=== PATIENT | male | born 1960 | race Caucasian/White ===

== ENCOUNTER 2021-06-26 06:56 | Emergency (ER) | payer OTHER, MEDICARE, MEDICAID, SELFPAY ==
--- NOTE | ~2021-06-26 | XR_ITS ---
EXAMINATION: XR ELBOW, LEFT CLINICAL INFORMATION: Left elbow pain. COMPARISON: None TECHNIQUE: AP, lateral, and oblique views of the left elbow. FINDINGS: The elbow joint space is maintained normal. There is a large olecranon osteophyte with moderate posterior olecranon soft tissue swelling likely bursitis. There is mild posterior elbow and proximal forearm soft tissue swelling. There is a small to moderate size lateral epicondyle enthesophyte. No abnormal joint effusion seen. There is no acute fracture or dislocation. XR/XR elbow LT min 3V IMPRESSION: Large posterior olecranon process enthesophyte with posterior soft tissue swelling suggestive of olecranon bursitis. Small to moderate size lateral epicondylar enthesophyte. No acute fracture or joint effusion seen.
[2021-06-26 07:10] VITALS: BP 172/85; PULSE 70; RESP 19; TEMP 36.8; O2SAT 97; BMI 31.7
[2021-06-26 09:14] LABS: MANUAL DIFF FLAG NO
[2021-06-26 09:15] LABS: Basophils Absolute Auto 0.1 X10*3/uL (0.0-0.2); Eosinophils Absolute Auto 0.1 X10*3/uL (0.0-0.4); Eosinophils Percent Auto 2.2 % (0-4); Hematocrit 48.5 % (42.0-52.0); Imm Gran Abs Auto 0.02 X10*3/uL (0.00-0.03); Imm Gran Pct Auto 0.3 % (0.0-0.4); Lymphocytes Absolute Auto 1.5 X10*3/uL (1.2-4.9); Lymphocytes Percent Auto 24.8 % (20-40); Mean Corpuscular HGB Conc 30.9 g/dl (31.0-36.0); Mean Corpuscular Hemoglobin 23.6 pg (27.0-33.0); Mean Corpuscular Volume 76.3 fL (80.0-98.0); Monocytes Absolute Auto 0.7 X10*3/uL (0.1-1.2); Monocytes Percent Auto 12.3 % (2-11); Neutrophils Absolute Auto 3.6 x10*3/uL (2.0-8.3); Neutrophils Percent Auto 59.4 % (45-73); Platelet Count 146 X10*3/uL (160-400); Red Blood Count 6.36 X10*6/uL (4.60-5.80); Red Cell Distribution Width 16.4 % (11.0-16.0)
--- NOTE | 2021-06-26 09:15 | ED.SKABFB ---
HPI - Skin/Abscess/Foreign Bdy General Chief complaint: Skin/Abscess/Foreign Body Stated complaint: l arm infection Time Seen by Provider: 06/26/21 08:06 Source: patient Mode of arrival: ambulatory History of Present Illness HPI narrative: 60-year-old male with no significant past medical history presenting to the ED complaining of left elbow pain, swelling, erythema and warmth x4 days. Reports decreased ROM secondary to pain. Denies known injury/trauma or fall. Denies fever, chills, numbness/tingling, CP Related Data Previous Rx's Medication Instructions Recorded cephalexin 500 mg capsule 500 mg PO QID 7 Days #28 cap 06/26/21 ketorolac 10 mg tablet 10 mg PO TID PRN 5 Days #15 tab 06/26/21 Allergies Allergy/AdvReac Type Severity Reaction Status Date / Time No Known Allergies Allergy Unverified 04/15/20 14:42 Review of Systems Review of Systems: Constitutional: No Fever, No Chills, No Malaise ENT/Mouth: No Nasal Congestion, No sore throat, No Rhinorrhea Eyes: No Eye Pain, No Swelling Cardiovascular: No Chest Pain, No SOB Respiratory: No Cough, No Dyspnea Gastrointestinal: No Nausea, No Vomiting, No Diarrhea, No Abdominal pain Genitourinary: No Dysuria, No Urinary Frequency, No Hematuria Musculoskeletal: + joint pain, No Myalgias, + Joint Swelling Skin: No Skin Lesions, No rash Neuro: No Weakness, No Numbness, No Paresthesias Yes all other systems are reviewed and are negative Neurologic: Denies Sensory deficit (Neuro) [facility] Past Medical History Attestation statement: The following information was validated with the patient. Social History Social History Alcohol intake: never Patient Tobacco Use Status: Never used Tobacco Use of substances other than those prescribed or required for medical reasons: No Advance Directives: No Advance Directives Information Provided: No Physical Exam Vital Signs: Vital Signs: Last Vital Signs Temp 98.2 F 06/26/21 07:10 Pulse 70 06/26/21 07:10 Resp 19 06/26/21 07:10 BP 172/85 H 06/26/21 07:10 Pulse Ox 97 06/26/21 07:10 Body Mass Index 31.7 Const: General: cooperative, healthy appearing and no acute distress Orientation/consciousness: patient oriented x3 Limitations: no limitations HENMT: Head: Yes normal to inspection Ears: hearing grossly normal bilaterally General nose exam: Normal external nose present Face and sinus: Yes normal facial exam Eyes: General: appearance normal, both eyes and all related structures EOM: EOMs intact bilaterally Neck: Neck: Yes normal visual inspection and Yes no meningeal signs Resp: Effort & Inspection: normal respiratory effort and no respiratory distress Cardio: Rate: regular rate Heart sounds: S1 normal heart sound present and S2 normal heart sound present Peripheral pulses: radial pulses present GI: Inspection: Yes normal to inspection Palpation (GI): Soft to palpation, nontender, no guarding and not rigid : General: Yes no CVA tenderness Back/Spine/Pelvis: Back: no CVA tenderness Skin: Rashes: no rashes Wounds: no wounds Neuro: General: patient oriented x3 and no meningeal signs Gait exam (Neuro): Normal gait present Sensory Exam: No Sensory deficit (Neuro) Extrem: Other: Left elbow with swelling, erythema and warmth. Tender to palpation. Decreased ROM secondary to pain. Neurovascularly intact distally. No fluctuance/induration or streaking Course Course Course Narrative: -1019--no leukocytosis. ESR WNL. Lactic negative. CRP mildly elevated > lower concern for septic joint/arthritis XR elbow LT min 3V IMPRESSION: Large posterior olecranon process enthesophyte with posterior soft tissue swelling suggestive of olecranon bursitis. ? Small to moderate size lateral epicondylar enthesophyte. ? No acute fracture or joint effusion seen. >> plan to DC patient home on p.o. Keflex with strict return precautions and orthopedic follow-up MDM - Skin/Abscess/Foreign Bdy MDM Narrative Medical decision making narrative: 60-year-old male with no significant past medical history presenting to the ED complaining of left elbow pain, swelling, erythema and warmth x4 days. On exam vital signs stable, afebrile, NAD. Nontoxic, physical exam as above. Concern for cellulitis vs infected bursitis vs septic joint/arthritis vs gout vs ?[place] Plan: Labs, UA, lactic/blood cultures, IV antibiotics, x-ray, re-evaluate Medical Records Attestation: I reviewed the patient's medical records. Lab Data Attestation: I reviewed the patient's lab results. Result diagrams: 06/26/21 09:04 06/26/21 09:04 Labs: Lab Results 06/26/21 06/26/21 06/26/21 Range/Units 09:04 09:04 09:04 WBC 6.0 (4.8-10.8) X10*3/uL RBC 6.36 H (4.60-5.80) X10*6/uL Hgb 15.0 (14.0-18.0) g/dl Hct 48.5 (42.0-52.0) % MCV 76.3 L (80.0-98.0) fL MCH 23.6 L (27.0-33.0) pg MCHC 30.9 L (31.0-36.0) g/dl RDW 16.4 H (11.0-16.0) % Plt Count 146 L (160-400) X10*3/uL MPV 10.0 (9.4-12.4) fL Immature Gran % (Auto) 0.3 (0.0-0.4) % Neut % (Auto) 59.4 (45-73) % Lymph % (Auto) 24.8 (20-40) % [place] % (Auto) 12.3 H (2-11) % Eos % (Auto) 2.2 (0-4) % Baso % (Auto) 1.0 (0-2) % Lymph # (Auto) 1.5 (1.2-4.9) X10*3/uL [place] # (Auto) 0.7 (0.1-1.2) X10*3/uL Eos # (Auto) 0.1 (0.0-0.4) X10*3/uL Baso # (Auto) 0.1 (0.0-0.2) X10*3/uL Abs Immat Gran (auto) 0.02 (0.00-0.03) X10*3/uL Absolute Neuts (auto) 3.6 (2.0-8.3) x10*3/uL Absolute Nucleated RBC 0.000 (0.0-0.012) X10*3/uL Nucleated RBC % (auto) 0.0 (0.0-0.2) /100WBC ESR 3 (0-15) MM/HR Sodium 137 (135-145) mmol/L Potassium 4.3 (3.3-5.1) mmol/L Chloride 105 (96-108) mmol/L Carbon Dioxide 22 (22-29) mmol/L Anion Gap 14 (12-20) BUN 13 (9-16) mg/dL Creatinine 1.00 (0.5-1.4) mg/dL Estim Creat Clear Calc 88.2 Estimated GFR > 60 Random Glucose 87 (60-115) mg/dL Lactic Acid (0.5-2.0) mmol/L Calcium 9.1 (8.4-10.2) mg/dL Total Bilirubin 0.9 (0.0-1.0) mg/dL Direct Bilirubin 0.3 (0.0-0.5) mg/dL AST 29 (5-37) U/L ALT 42 H (0-40) U/L Alkaline Phosphatase 79 (39-117) U/L C-Reactive Protein 2.53 H (< or = 0.50) mg/dL Total Protein 7.2 (6.5-8.0) g/dL Albumin 4.1 (3.5-5.0) g/dL 06/26/21 Range/Units 09:04 WBC (4.8-10.8) X10*3/uL RBC (4.60-5.80) X10*6/uL Hgb (14.0-18.0) g/dl Hct (42.0-52.0) % MCV (80.0-98.0) fL MCH (27.0-33.0) pg MCHC (31.0-36.0) g/dl RDW (11.0-16.0) % Plt Count (160-400) X10*3/uL MPV (9.4-12.4) fL Immature Gran % (Auto) (0.0-0.4) % Neut % (Auto) (45-73) % Lymph % (Auto) (20-40) % [place] % (Auto) (2-11) % Eos % (Auto) (0-4) % Baso % (Auto) (0-2) % Lymph # (Auto) (1.2-4.9) X10*3/uL [place] # (Auto) (0.1-1.2) X10*3/uL Eos # (Auto) (0.0-0.4) X10*3/uL Baso # (Auto) (0.0-0.2) X10*3/uL Abs Immat Gran (auto) (0.00-0.03) X10*3/uL Absolute Neuts (auto) (2.0-8.3) x10*3/uL Absolute Nucleated RBC (0.0-0.012) X10*3/uL Nucleated RBC % (auto) (0.0-0.2) /100WBC ESR (0-15) MM/HR Sodium (135-145) mmol/L Potassium (3.3-5.1) mmol/L Chloride (96-108) mmol/L Carbon Dioxide (22-29) mmol/L Anion Gap (12-20) BUN (9-16) mg/dL Creatinine (0.5-1.4) mg/dL Estim Creat Clear Calc Estimated GFR Random Glucose (60-115) mg/dL Lactic Acid 1.5 (0.5-2.0) mmol/L Calcium (8.4-10.2) mg/dL Total Bilirubin (0.0-1.0) mg/dL Direct Bilirubin (0.0-0.5) mg/dL AST (5-37) U/L ALT (0-40) U/L Alkaline Phosphatase (39-117) U/L C-Reactive Protein (< or = 0.50) mg/dL Total Protein (6.5-8.0) g/dL Albumin (3.5-5.0) g/dL Discharge Plan Discharge Clinical Impression: Bursitis due to bacterial infection Patient Disposition: Home, Self-Care Instructions: Cellulitis (ED) Additional Instructions: It appears you have infected bursitis, Keflex as an antibiotic please take as prescribed Apply cool compresses to area at Take Tylenol and Toradol for pain/swelling Toradol is a anti-inflammatory/pain medication, take with food Please follow-up with her primary care doctor and Orthopedics If symptoms persist/worsen, swelling/pain increases/worsens were unable to move her elbow or developed fever return to the ED immediately Prescriptions: New ketorolac 10 mg tablet 10 mg PO TID PRN (Reason: pain) 5 Days Qty: 15 RF: 0 cephalexin 500 mg capsule 500 mg PO QID 7 Days Qty: 28 RF: 0 Referrals: Flori Cruz MD [Primary Care Provider] - 2 days Nisa Robledo PA-C [Physician Roving Sizer] - 2 days
[2021-06-26] MEDS: Ketorolac Tromethamine 15 MG/ML VIAL IVPUSH (09:27)
[2021-06-26 09:29] LABS: Lactic Acid 1.5 mmol/L (0.5-2.0)
--- NOTE | 2021-06-26 09:30 | PC.NURSE ---
pt requiring many sticks by multiple staff for iv access and blood work. unable to get enough blood for lyme igg, lab aware. will medicate pt and attempt for further blood work brian.
[2021-06-26 09:37] LABS: Alanine Aminotransferase 42 U/L (0-40); Albumin Level 4.1 g/dL (3.5-5.0); Alkaline Phosphatase 79 U/L (39-117); Anion Gap 14 (12-20); Aspartate Amino Transferase 29 U/L (5-37); Bilirubin Direct 0.3 mg/dL (0.0-0.5); Bilirubin Total 0.9 mg/dL (0.0-1.0); Blood Urea Nitrogen 13 mg/dL (9-16); C Reactive Protein 2.53 mg/dL (< or = 0.50); Calcium 9.1 mg/dL (8.4-10.2); Carbon Dioxide 22 mmol/L (22-29); Chloride 105 mmol/L (96-108); Creatinine Clr Calc Pharmacy 88.2; Estimated Glomerular Filt Rate > 60; Glucose Random 87 mg/dL (60-115); Potassium 4.3 mmol/L (3.3-5.1); Sodium 137 mmol/L (135-145); Total Protein 7.2 g/dL (6.5-8.0)
[2021-06-26] MEDS: cefTRIAXone sodium 1 GM in 0.9 % Sodium Chloride 50 ML IV (09:42)
[2021-06-26 10:06] LABS: Erythrocyte Sedimentation Rate 3 MM/HR (0-15)
== END 2021-06-26 10:44 | disposition home or self-care (01) ==
PROVIDERS: Physician Assistant; Emergency Provider Emergency Medicine; PCP Internal Medicine
DX: M71.122 Other infective bursitis, left elbow (principal); B96.89 Other specified bacterial agents as the cause of diseases classified elsewhere; M25.522 Pain in left elbow; M25.422 Effusion, left elbow
CPT/HCPCS: 36415; 73080; 80048; 80076; 83605; 85025; 85652; 86140; 87040; 96365; 96375; 99284; J0696; J1885

== ENCOUNTER 2021-06-28 07:14 | Emergency (ER) | payer OTHER, MEDICARE, MEDICAID, SELFPAY ==
--- NOTE | ~2021-06-28 | CT_ITS ---
EXAMINATION: CT LEFT ELBOW. CLINICAL INFORMATION: Pain is, swelling and warmth extending from elbow to forearm. COMPARISON: Left elbow exam 06/18/2021. TECHNIQUE: 3 mm thin axial and reformatted 1 mm thin sagittal coronal images of left elbow were obtained without contrast. DLP 149 FINDINGS: There is normal distal humeral, radio-ulnar alignment. No bony erosive changes or loose body seen. There is no abnormal joint effusion seen. There is a small olecranon head enthesophyte. Also small enthesophytes are seen along the lateral distal humeral epicondyle. The radial head is intact. No acute fracture or dislocation seen.. There is moderate superficial soft tissue swelling extending from posterior distal humerus, elbow joint to the proximal and mid forearm likely cellulitis. No radiopaque foreign body or abscess seen in this region. CT/CT elbow LT w con IMPRESSION: Likely moderate cellulitis involving the posterior elbow joint without any radiopaque foreign body or abscess. There is diffuse soft tissue swelling, most localized posterior to the olecranon head and enthesophyte. No soft tissue swelling seen along the anterior elbow. No acute fracture or dislocation. No abnormal joint effusion or loose bodies seen.
[2021-06-28 08:18] VITALS: BP 138/78; PULSE 60; RESP 16; TEMP 36.9; O2SAT 99; BMI 31.7
--- NOTE | 2021-06-28 08:37 | ED.EXTPRO ---
HPI - Extremity Problem General Chief complaint: Extremity Problem Stated complaint: ?inf lt arm Time Seen by Provider: 06/28/21 08:25 Source: patient and family Mode of arrival: ambulatory Limitations: no limitations History of Present Illness HPI Narrative: 60-year-old male with no medical problems presents to the ER for return visit with ongoing left elbow pain. He was seen here on June 26 diagnosed with infectious bursitis and discharged on Keflex and Toradol. He states since discharge he has been compliant with his medications but is having worsening pain that is now extending down into his forearm. He states he feels like his forearm is swollen and it hurts to move his hand and fingers. He is unable to fully extend his arm due to pain he can not slightly bend the elbow but it hurts. He feels ?sick? but has had no fevers at home he reports some chills and just generally feeling unwell. His elbow continues to be warm and very tender to the touch. He did not sleep at all last night because of the pain. At 23:00 he woke up with worsening pain and was unable to go back to bed. MD Complaint: joint swelling and joint paint Onset (ago): day(s) Pain Consistency: constant Location: left and elbow Severity scale (1-10): 8 Quality: aching and constant Radiation: distal Relieving factors: rest Exacerbating factors: range of motion and palpation Associated symptoms: myalgias and arthralgias Related Data Previous Rx's Medication Instructions Recorded cephalexin 500 mg capsule 500 mg PO QID 7 Days #28 cap 06/26/21 ketorolac 10 mg tablet 10 mg PO TID PRN 5 Days #15 tab 06/26/21 doxycycline hyclate 100 mg tablet 100 mg PO BID #14 tab 06/28/21 oxycodone 5 mg tablet 5 mg PO Q4-6H PRN #10 tab 06/28/21 Allergies Allergy/AdvReac Type Severity Reaction Status Date / Time No Known Allergies Allergy Unverified 04/15/20 14:42 Review of Systems Review of Systems: Constitutional: No Fever, No Chills ENT/Mouth: No sore throat, No Rhinorrhea, No Swallowing Difficulty Cardiovascular: No Chest Pain, No SOB, No Orthopnea, No Edema Respiratory: No Cough, No Sputum, No Wheezing, No dyspnea Gastrointestinal: No Nausea, No Vomiting, No Diarrhea, No abdominal Pain Genitourinary: No Dysuria, No Urinary Frequency, No Hematuria Musculoskeletal: + joint pain, + Myalgias Skin: No Skin Lesions, No rash Neuro: + Weakness, No Numbness, No Dizziness, + Headache Psych: + Anxiety/Panic, No Depression Heme/Lymph: No Bruising, No Lymphadenopathy Endocrine: No Polyuria, No Polydipsia PMFSH Social History Social History Alcohol intake: never Patient Tobacco Use Status: Never used Tobacco Advance Directives: No Physical Exam Vital Signs: Vital Signs: Last Vital Signs Temp 98.5 F 06/28/21 10:57 Pulse 62 06/28/21 10:57 Resp 16 06/28/21 10:57 BP 168/83 H 06/28/21 10:57 Pulse Ox 98 06/28/21 10:57 Body Mass Index 31.7 Appearance: Alert. Oriented X3. No acute distress. Eyes: Pupils equal, round and reactive to light. ENT: Pharynx normal. Neck: Normal inspection. Neck supple. CVS: Normal heart rate and rhythm. Pulses normal. Respiratory: No respiratory distress. Breath sounds normal. Abdomen: Soft and nontender. +BS x4 Skin: Skin warm and dry. Normal skin color. Normal skin turgor. No rashes. Extremities: Left elbow with moderate swelling and warmth. Minimal erythema to the elbow joint itself. There is tenderness and some swelling extending to the volar surface of the forearm without any erythema or warmth. He has a 2+ radial pulses and is neurovascularly intact distal. He is unable to extend the elbow due to pain he can partially flex it to maybe 90 degrees but nothing past that. Neuro: Oriented X 3. No motor deficit. No sensory deficit. Course Course Course Narrative: 60-year-old male with history of recently diagnosed infectious bursitis on the p.o. Keflex and Toradol for the last 2 days presents back to the ER with worsening elbow pain that is extending distally. No fevers but reports some subjective chills at home and feeling unwell. Will repeat septic workup and get CT scan for further evaluation of infection that may be into the muscle or joint. Will give dose of IV vancomycin and Rocephin for broad coverage. He may require admission to the hospital. Reevaluation(s) Reevaluation #1: New leukocytosis. ESR is normal. CRP is slightly elevated, up titrated slightly from the day before. Otherwise his lab workup is normal including a normal lactic acid. Blood cultures were sent. CT scan of the elbow is showing moderate cellulitis of the posterior elbow without abscess. There is diffuse soft tissue swelling. No drainable collection. This CT scan was reviewed by Nisa SORENSEN from Orthopedics. She is recommending Camacho wrap for compressio and adding doxycycline to regimen. Patient agreeable with plan and will f/u with Orthopedics this week. MDM - Extremity (Nontraumatic) Lab Data Result diagrams: 06/28/21 09:03 06/28/21 09:03 Labs: Lab Results 06/28/21 06/28/21 06/28/21 Range/Units 09:02 09:03 09:03 WBC 5.0 (4.8-10.8) X10*3/uL RBC 6.80 H (4.60-5.80) X10*6/uL Hgb 15.9 (14.0-18.0) g/dl Hct 51.3 (42.0-52.0) % MCV 75.4 L (80.0-98.0) fL MCH 23.4 L (27.0-33.0) pg MCHC 31.0 (31.0-36.0) g/dl RDW 15.9 (11.0-16.0) % Plt Count 185 D (160-400) X10*3/uL MPV 10.4 (9.4-12.4) fL Immature Gran % (Auto) 0.4 (0.0-0.4) % Neut % (Auto) 62.7 (45-73) % Lymph % (Auto) 22.9 (20-40) % [place] % (Auto) 10.0 (2-11) % Eos % (Auto) 2.8 (0-4) % Baso % (Auto) 1.2 (0-2) % Lymph # (Auto) 1.2 (1.2-4.9) X10*3/uL [place] # (Auto) 0.5 (0.1-1.2) X10*3/uL Eos # (Auto) 0.1 (0.0-0.4) X10*3/uL Baso # (Auto) 0.1 (0.0-0.2) X10*3/uL Abs Immat Gran (auto) 0.02 (0.00-0.03) X10*3/uL Absolute Neuts (auto) 3.2 (2.0-8.3) x10*3/uL Absolute Nucleated RBC 0.000 (0.0-0.012) X10*3/uL Nucleated RBC % (auto) 0.0 (0.0-0.2) /100WBC ESR 4 (0-15) MM/HR Sodium (135-145) mmol/L Potassium (3.3-5.1) mmol/L Chloride (96-108) mmol/L Carbon Dioxide (22-29) mmol/L Anion Gap (12-20) BUN (9-16) mg/dL Creatinine (0.5-1.4) mg/dL Estim Creat Clear Calc Estimated GFR Random Glucose (60-115) mg/dL Lactic Acid (0.5-2.0) mmol/L Calcium (8.4-10.2) mg/dL Magnesium (1.6-2.6) mg/dL Total Bilirubin (0.0-1.0) mg/dL Direct Bilirubin (0.0-0.5) mg/dL AST (5-37) U/L ALT (0-40) U/L Alkaline Phosphatase (39-117) U/L Total Creatine Kinase (38-174) U/L C-Reactive Protein (< or = 0.50) mg/dL Total Protein (6.5-8.0) g/dL Albumin (3.5-5.0) g/dL COVID-19 ([facility]) Negative (Negative) COVID-19 Clin Com See Note 06/28/21 06/28/21 Range/Units 09:03 09:03 WBC (4.8-10.8) X10*3/uL RBC (4.60-5.80) X10*6/uL Hgb (14.0-18.0) g/dl Hct (42.0-52.0) % MCV (80.0-98.0) fL MCH (27.0-33.0) pg MCHC (31.0-36.0) g/dl RDW (11.0-16.0) % Plt Count (160-400) X10*3/uL MPV (9.4-12.4) fL Immature Gran % (Auto) (0.0-0.4) % Neut % (Auto) (45-73) % Lymph % (Auto) (20-40) % [place] % (Auto) (2-11) % Eos % (Auto) (0-4) % Baso % (Auto) (0-2) % Lymph # (Auto) (1.2-4.9) X10*3/uL [place] # (Auto) (0.1-1.2) X10*3/uL Eos # (Auto) (0.0-0.4) X10*3/uL Baso # (Auto) (0.0-0.2) X10*3/uL Abs Immat Gran (auto) (0.00-0.03) X10*3/uL Absolute Neuts (auto) (2.0-8.3) x10*3/uL Absolute Nucleated RBC (0.0-0.012) X10*3/uL Nucleated RBC % (auto) (0.0-0.2) /100WBC ESR (0-15) MM/HR Sodium 136 (135-145) mmol/L Potassium 5.5 H D (3.3-5.1) mmol/L Chloride 103 (96-108) mmol/L Carbon Dioxide 23 (22-29) mmol/L Anion Gap 16 (12-20) BUN 17 H (9-16) mg/dL Creatinine 1.04 (0.5-1.4) mg/dL Estim Creat Clear Calc 84.8 Estimated GFR > 60 Random Glucose 94 (60-115) mg/dL Lactic Acid 1.0 (0.5-2.0) mmol/L Calcium 9.7 D (8.4-10.2) mg/dL Magnesium 2.4 (1.6-2.6) mg/dL Total Bilirubin 1.1 H (0.0-1.0) mg/dL Direct Bilirubin 0.3 (0.0-0.5) mg/dL AST 46 H D (5-37) U/L ALT 51 H (0-40) U/L Alkaline Phosphatase 87 (39-117) U/L Total Creatine Kinase 122 (38-174) U/L C-Reactive Protein 2.99 H (< or = 0.50) mg/dL Total Protein 8.2 H (6.5-8.0) g/dL Albumin 4.4 (3.5-5.0) g/dL COVID-19 ([facility]) (Negative) COVID-19 Clin Com Discharge Plan Discharge Clinical Impression: Bursitis due to bacterial infection, Cellulitis of left elbow Patient Disposition: Home, Self-Care Instructions: Cellulitis (ED), Elbow Bursitis (ED) Additional Instructions: Your lab workup today was reassuring. Your CT scan today showed cellulitis and soft tissue swelling without any abscess or drainable infection. Your given IV antibiotics in the emergency room today. We are starting a 2nd antibiotic, take 1st dose tomorrow. Continue your previously prescribed Keflex starting tomorrow morning. Take the prescribed oxycodone as needed for severe pain, your insurance required prior authorization for all pain medications so you may need to pay [id number] for this. Continue the Toradol as previously prescribed, take with food. Follow-up with the orthopedic clinic in 2 days. Call for an appointment. There where of your case. If you develop new or worsening symptoms call 911 or come back to the ER for further evaluation. Prescriptions: New doxycycline hyclate 100 mg tablet 100 mg PO BID Qty: 14 RF: 0 oxycodone 5 mg tablet 5 mg PO Q4-6H PRN (Reason: pain) Qty: 10 RF: 0 No Action ketorolac 10 mg tablet 10 mg PO TID PRN (Reason: pain) 5 Days Qty: 15 RF: 0 cephalexin 500 mg capsule 500 mg PO QID 7 Days Qty: 28 RF: 0 Referrals: Nisa Robledo PA-C [Physician Biological Lab Technician] - 2 days (infected elbow bursitis and cellulitis) Interventions: ED Discharge Assessment Last Done: 06/28/21 12:31 Discharge Date/Time: 06/28/21 12:33
[2021-06-28 09:09] LABS: MANUAL DIFF FLAG NO
[2021-06-28 09:13] LABS: Basophils Absolute Auto 0.1 X10*3/uL (0.0-0.2); Basophils Percent Auto 1.2 % (0-2); Eosinophils Absolute Auto 0.1 X10*3/uL (0.0-0.4); Eosinophils Percent Auto 2.8 % (0-4); Hematocrit 51.3 % (42.0-52.0); Hemoglobin 15.9 g/dl (14.0-18.0); Imm Gran Abs Auto 0.02 X10*3/uL (0.00-0.03); Imm Gran Pct Auto 0.4 % (0.0-0.4); Lymphocytes Absolute Auto 1.2 X10*3/uL (1.2-4.9); Lymphocytes Percent Auto 22.9 % (20-40); Mean Corpuscular Hemoglobin 23.4 pg (27.0-33.0); Mean Corpuscular Volume 75.4 fL (80.0-98.0); Mean Platelet Volume 10.4 fL (9.4-12.4); Monocytes Absolute Auto 0.5 X10*3/uL (0.1-1.2); Neutrophils Absolute Auto 3.2 x10*3/uL (2.0-8.3); Neutrophils Percent Auto 62.7 % (45-73); Platelet Count 185 X10*3/uL (160-400); Red Cell Distribution Width 15.9 % (11.0-16.0)
[2021-06-28 09:28] LABS: COVID-19 Test Negative (Negative); IDNOW Serial# 9DD0AD1C
[2021-06-28 09:34] LABS: Alanine Aminotransferase 51 U/L (0-40); Albumin Level 4.4 g/dL (3.5-5.0); Alkaline Phosphatase 87 U/L (39-117); Anion Gap 16 (12-20); Aspartate Amino Transferase 46 U/L (5-37); Bilirubin Direct 0.3 mg/dL (0.0-0.5); Bilirubin Total 1.1 mg/dL (0.0-1.0); Blood Urea Nitrogen 17 mg/dL (9-16); C Reactive Protein 2.99 mg/dL (< or = 0.50); Calcium 9.7 mg/dL (8.4-10.2); Carbon Dioxide 23 mmol/L (22-29); Chloride 103 mmol/L (96-108); Creatinine Clr Calc Pharmacy 84.8; Estimated Glomerular Filt Rate > 60; Glucose Random 94 mg/dL (60-115); Magnesium 2.4 mg/dL (1.6-2.6); Potassium 5.5 mmol/L (3.3-5.1); Sodium 136 mmol/L (135-145); Total Protein 8.2 g/dL (6.5-8.0)
[2021-06-28 10:02] LABS: Erythrocyte Sedimentation Rate 4 MM/HR (0-15)
[2021-06-28] MEDS: oxyCODONE HCl Immed Release 5 MG TABLET PO ×2 (10:07→11:26)
[2021-06-28] MEDS: cefTRIAXone sodium 1 GM in 0.9 % Sodium Chloride 50 ML IV (10:14)
[2021-06-28] MEDS: iohexoL 350 MG/ML 100 ML INFUS..BTL IV (10:21)
--- NOTE | 2021-06-28 10:37 | PHA.MEDREC ---
med rec complete, no issues Pharmacy Consult ? Medication Reconciliation Pharmacy has completed the medication reconciliation.
[2021-06-28] MEDS: vancomycin HCL 1,250 MG in 0.9 % Sodium Chloride 250 ML 166.67 MG IV (10:52)
[2021-06-28 10:57] VITALS: BP 168/83; PULSE 62; RESP 16; TEMP 36.9; O2SAT 98
[2021-06-28] MEDS: Ketorolac Tromethamine 15 MG/ML VIAL 30 MG IVPUSH (11:28)
== END 2021-06-28 12:33 | disposition home or self-care (01) ==
PROVIDERS: Physician Assistant; Emergency Provider Emergency Medicine; PCP Internal Medicine
DX: M71.122 Other infective bursitis, left elbow (principal); B96.89 Other specified bacterial agents as the cause of diseases classified elsewhere; L03.114 Cellulitis of left upper limb; Z20.822 Contact with and (suspected) exposure to COVID-19; M79.10 Myalgia, unspecified site
CPT/HCPCS: 36415; 73201; 80048; 80076; 82550; 83605; 83735; 85025; 85652; 86140; 87040; 87635; 96365; 96367; 96375; 99284; J0696; J1885; J3370; Q9967

== ENCOUNTER 2024-12-02 06:49 | Outpatient (REF) | payer OTHER, SELFPAY ==
--- OUTSIDE RECORDS SUMMARY | 2024-12-02 06:52 | XMS_ITS | Clinical Summary ---
Author Organization [facility] Address [address] [place] [address] Care Team Providers Care Adventure Guide Name Role Phone Flori Cruz MD Primary Care Provider [phone] Allergies No known active allergies Medications Medication Sig Dispensed Refills Start Date End Date Status meloxicam (MOBIC) 15 MG tablet Take 1 tablet (15 mg total) by mouth daily. 14 tablet 0 08/19/2021 Active amoxicillin (AMOXIL) 500 MG tablet Take 4 tabs 1 hour prior to dental appointment 20 tablet 3 09/01/2021 Active senna-docusate (PERICOLACE) 8.6-50 MG Take 1 tablet by mouth 2 (two) times a day. 50 tablet 0 09/27/2021 Active acetaminophen (TYLENOL EXTRA STRENGTH) 500 MG tablet Take 1 tablet (500 mg total) by mouth every 8 (eight) hours as needed for pain. 60 tablet 0 10/13/2021 Active pantoprazole (PROTONIX) 40 MG tablet TAKE 1 TABLET BY MOUTH EVERY DAY IN THE MORNING ON AN EMPTY STOMACH 30 tablet 1 11/15/2021 Active Active Problems Problem Noted Date Diagnosed Date Arthritis of knee, right 04/14/2021 Resolved Problems Problem Noted Date Diagnosed Date Resolved Date Acute lateral meniscus tear of right knee 10/26/2020 11/11/2020 Immunizations Name Administration Dates Next Due Covid-19 (J&J) 12/06/2020 Family History Medical History Relation Name Comments COPD Father Cancer Father bladder Heart disease Father Heart failure Father Hyperlipidemia Father Hypertension Father Peripheral vascular disease Father Peripheral vascular disease Mother peripheral STENTS Arthritis Sister 1 No Sig Med Hx Sister 2 Aleyda No Sig Med Hx Sister 3 Radha Relation Name Status Comments Father (Age 88) Mother Alive Sister 1 Alive Sister 2 Aleyda Alive Sister 3 Radha Alive Social History Tobacco Use Types Packs/Day Years Used Date Smoking Tobacco: Former Cigarettes 1 Q uit: 2004 Smokeless Tobacco: Never Alcohol Use Standard Drinks/Week Comments Yes 15 (1 standard drink = 0.6 oz pu re alcohol) 12-15/weekly Sex and Gender Information Value Date Recorded Sex Assigned at Male 07/27/2021 11:07 AM EST Gender Identity Male 07/27/2021 11:07 AM EST Sexual Orientation Not on file Job Start Date Occupation Industry Not on file Not on file Not on file Last Filed Vital Signs Vital Sign Reading Time Taken Comments Blood Pressure 137/77 08/19/2021 12:24 PM EST Pulse 64 08/19/2021 12:24 PM EST Temperature 37.3 ??C (99.2 ??F) 08/19/2021 12:[address] Respiratory Rate 18 08/19/2021 12:24 PM EST Oxygen Saturation 97% 08/19/2021 12:24 PM EST Inhaled Oxygen Concentration - - Weight 97.5 kg (215 lb) 08/18/2021 6:35 AM EST Height 175.3 cm (5' 9 ) 08/18/2021 6:35 AM EST Body Mass Index 31.75 08/18/2021 6:35 AM EST Plan of Treatment Health Maintenance Due Date Last Done Comments Hepatitis C Screening 1958 Depression Screening 1970 BMI Counseling 1976 Preventative Health Evaluation 1976 DTap / Tdap / Td (1 - Tdap) 1977 Colon Cancer Screening (Colonoscopy) 2003 Shingrix-Zoster Vaccine (1 of 2) 2008 Fall Risk Assessment 2023 Pneumococcal Vaccine (1 of 1 - PCV) 2023 COVID-19 Vaccine (2 - 2023-2 5 season) 2024 12/06/2020 Influenza Vaccine (#1) 2024 RSV Adult > 60+ Yrs or Pregn ant (1 - 1-dose 75+ series) 2033 Hepatitis B Vaccines Aged Out No long er eligible based on patient's age to complete this topic RSV Ped < 20 months Aged Out No longe r eligible based on patient's age to complete this topic Medical Devices Implanted Type Area General Contractor Device Identifier Shelf Expiration Date Model / Serial / Lot Cement Bone Surg Simplex Radiopq Stry-Howm 4265-2-969-114 092 - [id number] Implanted:Qty: 1 on 08/18/2021 by Mikal Campbell MD at [facility] Right: Knee [employer] [id number] 09/27/2023 6191-1-010 / / [id number] Cement Bone Surg Simplex Radiopq Stry-Howm [id number] 092 - [id number] Implanted:Qty: 1 on 08/18/2021 by Mikal Campbell MD at [facility] Right: Knee [employer] [id number] 05/29/2022 [id number] / / [id number] Peg Fix Femoral Distal Stry-Howm [id number]-[id number] 704 - [id number] Implanted:Qty: 1 on 08/18/2021 by Mikal Campbell MD at [facility] Right: Knee [employer] [id number] 11/17/2025 5575-X-000 / / [id number] Knee Pat Symmetric X3 29x8mm Stry-Howm 2768-M-[id number] 334 - [id number] Implanted:Qty: 1 on 08/18/2021 by Mikal Campbell MD at [facility] Right: Knee [employer] [id number] 07/15/2025 5550-G-298 / / [id number] Knee Tib Insrt Ps-X3 [id number] Stry-Howm 8875-M-[id number] 751 - [id number] Implanted:Qty: 1 on 08/18/2021 by Mikal Campbell MD at [facility] Right: Knee [employer] [id number] 02/20/2026 5532-G-513 / / [id number] Knee Baseplt Tib Cmnt Sz5 Stry-Howm 5675-I-[id number] 191 - [id number] Implanted:Qty: 1 on 08/18/2021 by Mikal Campbell MD at [facility] Right: Knee [employer] [id number] 04/26/2026 5520-B-500 / / [id number] Knee Fem Ps Trthln Sz [address] [id number]-U-[id number] 740 - [id number] Implanted:Qty: 1 on 08/18/2021 by Mikal Campbell MD at [facility] Right: Knee [employer] [id number] 02/25/2026 5515-F-402 / / [id number] Advance Directives For more information, please contact: [phone] Latest Code Status on File Code Status Date Activated Date Inactivated Comments Full Code 08/18/2021 9:40 AM 08/19/2021 9:30 PM This code status was ascertained in the following way: discussion with patient . Code Status History Code Status Date Activated Date Inactivated Comments Full Code 08/18/2021 5:13 AM 08/18/2021 9:39 AM This code status was ascertained in the following way: discussion with patient . Care Teams Adventure Guide Relationship Specialty Start Date End Date Flori Cruz MD [address] [place] [address] PCP - General Internal Medicine 10/13/20
[2024-12-02 10:33] LABS: MANUAL DIFF FLAG NO
[2024-12-02 10:48] LABS: Basophils Absolute Auto 0.1 X10*3/uL (0.0-0.2); Basophils Percent Auto 1.6 % (0-2); Eosinophils Absolute Auto 0.2 X10*3/uL (0.0-0.4); Eosinophils Percent Auto 3.3 % (0-4); Hematocrit 49.8 % (42.0-52.0); Hemoglobin 16.1 g/dl (14.0-18.0); Imm Gran Abs Auto 0.02 X10*3/uL (0.00-0.03); Imm Gran Pct Auto 0.4 % (0.0-0.4); Lymphocytes Absolute Auto 1.4 X10*3/uL (1.2-4.9); Lymphocytes Percent Auto 27.3 % (20-40); Mean Corpuscular HGB Conc 32.3 g/dl (31.0-36.0); Mean Corpuscular Hemoglobin 23.9 pg (27.0-33.0); Mean Corpuscular Volume 73.9 fL (80.0-98.0); Mean Platelet Volume 10.5 fL (9.4-12.4); Monocytes Absolute Auto 0.5 X10*3/uL (0.1-1.2); Neutrophils Percent Auto 58.4 % (45-73); Platelet Count 164 X10*3/uL (160-400); Red Blood Count 6.74 X10*6/uL (4.60-5.80); Red Cell Distribution Width 17.3 % (11.0-16.0); White Blood Count 5.1 X10*3/uL (4.8-10.8)
[2024-12-02 11:10] LABS: Alanine Aminotransferase 67 U/L (0-40); Albumin Level 4.1 g/dL (3.5-5.0); Alkaline Phosphatase 71 U/L (39-117); Anion Gap 13 (12-20); Aspartate Amino Transferase 53 U/L (5-37); Blood Urea Nitrogen 17 mg/dL (9-16); Calcium 8.8 mg/dL (8.4-10.2); Carbon Dioxide 23 mmol/L (22-29); Chloride 106 mmol/L (96-108); Cholesterol 229 mg/dL (<200); Estimated Glomerular Filt Rate > 60; Glucose Fasting 105 mg/dL (60-99); Potassium 4.9 mmol/L (3.3-5.1); Sodium 137 mmol/L (135-145); Total Protein 7.6 g/dL (6.5-8.0); Triglycerides 112 mg/dL (<150)
[2024-12-02 11:39] LABS: HDL Cholesterol 41 mg/dL (>40); LDL Cholesterol Calculated 166 mg/dL (<100)
== END 2024-12-02 06:50 | disposition home or self-care (01) ==
LOC: HO.HMGCLDS 06:49
PROVIDERS: PCP Internal Medicine; Visit Provider Internal Medicine
DX: I10 Essential (primary) hypertension (principal); R74.8 Abnormal levels of other serum enzymes; E66.9 Obesity, unspecified; Z12.5 Encounter for screening for malignant neoplasm of prostate
CPT/HCPCS: 36415; 80053; 80061; 84153; 85025

== ENCOUNTER 2024-12-03 08:18 | Outpatient (AMB) | payer OTHER, MEDICARE, MEDICAID, SELFPAY ==
--- NOTE | 2024-12-03 08:23 | MHC.PC.OV ---
Vital Signs 12/03/24 08:28 Height 5 ft 8 in Weight 232 lb BMI 35.3 BP 150/78 H Blood Pressure Location Lt brachial Position Sitting Respiration 16 Pulse 91 Pulse Source Pulse Oximeter Temp 98.1 F Temp Source Oral Pulse Oximetry (%) 97 Oxygen Delivery Method Room Air Intake Visit Reasons: Annual PE Intake Note: Pt is here today for his PE Allergies No Known Allergies Allergy (Unverified 12/03/24 08:50) Medication List - Last Reconciled 12/03/24 by Flori Cruz MD No Known Home Meds Tobacco use date assessed: 12/03/24 Fall risk assessment: 2 + Falls in past year Last assessed Fall Risk: 12/03/24 Dental Screening Dental Screen Date: 12/03/24 Did you have a dental visit in the last 12 months?: No Did you have a dental problem in the last 6 months where you did not have access to dental care?: No Was dental information given to patient?: No HPI Annual PE HPI Details 64-year-old male, here today to reestablish care with the practice and for physical exam. He has history dyslipidemia, with latest fasting labs showing elevated LDL cholesterol, currently not on any medications. His PSA and liver enzymes are elevated . Denies any abdominal pain but complains of nocturia. He drinks alcohol on a regular basis, drinks three cans of beer , at least 3 times a week. Overdue for his screening colonoscopy. [facility] Medical History (Updated 12/13/24 @ 23:51 by Flori Cruz MD) Essential hypertension Obesity (BMI 30-39.9) Alcohol use disorder Elevated transaminase level Elevated PSA Dyslipidemia History of bucket handle tear of lateral meniscus Medial epicondylitis History of osteoarthritis Surgical History (Updated 12/03/24 @ 09:06 by Flori Cruz MD) H/O cervical discectomy History of total knee arthroplasty History of arthroscopy of shoulder History of elbow surgery History of carpal tunnel release Family History (Updated 12/03/24 @ 09:01 by Flori Cruz MD) Mother Peripheral arterial disease Father Coronary artery disease Hyperlipidemia Bladder cancer COPD (chronic obstructive pulmonary disease) Peripheral arterial disease Sister Arthritis Social History (Updated 12/13/24 @ 23:41 by Flori Cruz MD) Housing: House Alcohol intake: current Alcohol intake frequency: 0-2 drinks per day Alcohol type: beer Patient Tobacco Use Status: Former Tobacco user Tobacco use type: Cigarette Cigarette Packs Per Day: 1 e-Cigarette/Vaping Use: Never Used service: No Current occupational status: retired Cognitive needs: No Hearing needs: No Vision needs: Yes Questionnaire PHQ-9 Over the last 2 weeks, how often have you been bothered by any of the following problems? 1. Little interest or pleasure in doing things: not at all 2. Feeling down, depressed, or hopeless: not at all 3. Trouble falling or staying asleep, or sleeping too much: not at all 4. Feeling tired or having little energy: several days 5. Poor appetite or overeating: not at all 6. Feeling bad about yourself - or that you are a failure or have let yourself or your family down: not at all 7. Trouble concentrating on things, such as reading the newspaper or watching television: not at all 8. Moving or speaking so slowly that other people could have noticed. Or the opposite - being so fidgety or restless that you have been moving around a lot more than usual: not at all 9. Thoughts that you would be better off or of hurting yourself in some way: not at all Total score: 1 Depression Screening Interpretation: Negative Depression Screening Done: Yes 91642 - PHQ-9 Billing: Yes Source: Developed by Drs. Germain Marie, Batool Mena, Jamari Dominguez and colleagues, with an educational keaton from [employer]. Thrive Questionnaire Date Thrive assessed: 12/03/24 I am a: Patient What is your living situation today?: I have a steady place to live Within the past 12 months, did the food you bought not last and you didn't have the money to get more?: Never true Within the past 12 months, did you worry whether your food would run out before you got money to buy more?: Never true Do you have trouble paying for medicines?: No Do you have trouble getting transportation to medical appointments?: No Do you have trouble paying your heating and electricity bill?: No Do you have trouble taking care of your child, family member or friend?: No Do you have trouble with day-to-day activities such as bathing, preparing meals, shopping, managing finances, etc.?: No Are you currently unemployed and looking for a job?: No Are you interested in more education?: No Please select the resources that you would like help with: None Currently or been in a relationship where the following occur: No concerns reported THRIVE Score: 0 AUDIT C Alcohol Use Questionnaire (AUDIT-C) 1. How often do you have a drink containing alcohol?: 2-3 times a week 2. How many drinks containing alcohol do you have on a typical day when you are drinking?: 3 or 4 3. How often do you have six or more drinks on one occasion?: Weekly Total Score: 7 SONI-7 AMB Questionnaire SONI-7 Date SONI - 7 assessed: 12/03/24 Feeling nervous, anxious, or on edge: 0 = Not at all Not being able to stop or control worryin = Not at all Worrying too much about different things: 0 = Not at all Trouble relaxin = Not at all Being so restless that it is hard to sit still: 0 = Not at all Becoming easily annoyed or irritable: 1 = Several days Feeling afraid as if something awful might happen: 0 = Not at all Total SONI-7 score (0-4 normal; 5-9 mild; 10-14 moderate; 15-21 severe): 1 Source: Developed by Drs. Germain Marie, Batool Mena, Jamari Dominguez and colleagues, with an educational keaton from [employer]. Review of Systems Const Denies body aches, Denies fatigue, Denies fever(s) and Denies headache(s) Eyes Denies change in vision ENT Denies dizziness and Denies headache(s) Card Denies chest pain, Denies lightheadedness, Denies palpitations and Denies dyspnea Resp Denies chest congestion, Denies cough, Denies dyspnea and Denies wheezing GI Denies abdominal pain, Denies change in bowel habits and Denies heartburn Denies hematuria, Denies difficulty urinating, Denies dysuria, Denies urinary frequency and Denies urinary urgency Musc Details: Recurrent posterior neck and shoulder pain Skin/Breast Denies lesions and Denies rash Neuro Denies dizziness and Denies headache(s) Psych Reports no additional complaints Endo Denies fatigue, Denies polydipsia, Denies polyuria and Denies palpitations Gerard/Lymph Denies easy bruising Aller/Immun Denies seasonal rhinorrhea and Denies wheezing Physical exam (Primary Care) Vital Signs: Last Vital Signs Temp 98.1 F 12/03/24 08:28 Pulse 91 12/03/24 08:28 Resp 16 12/03/24 08:28 BP 150/78 H 12/03/24 08:28 Pulse Ox 97 12/03/24 08:28 Oxygen Delivery Method Room Air 12/03/24 08:28 BMI result Body Mass Index 35.3 Tobacco/Smoking Status: Tobacco use Status Tobacco use date assessed 12/03/24 12/03/24 08:24 Patient Tobacco Use Status Former Tobacco user 12/03/24 09:04 Tobacco use type Cigarette 12/03/24 09:04 e-Cigarette/Vaping Use Never Used 12/03/24 09:04 PHQ-9: PHQ-9 Score PHQ-9: Total score 1 12/13/24 23:02 Depression Screening Interpretation: Negative Thrive Assessment: Date of Thrive Assessment Date Thrive assessed 12/03/24 12/03/24 08:35 Currently or been in a relationship where the following occur: No concerns reported Const General: no acute distress and alert Orientation/consciousness: patient oriented x3 HENMT Head: Yes normocephalic Ears: external ears normal, TM's normal bilaterally and EAC's normal General nose exam: Normal external nose present and No nasal discharge present Face and sinus: Yes face symmetric Mouth: Normal oral and palatal mucosa present, oropharynx normal and moist mucous membranes Eyes General: appearance normal, both eyes and all related structures Eyelids: Yes eyelids normal Conjunctivae: conjunctivae normal Sclerae: sclerae normal Pupils: Equal, round and reactive pupils present EOM: EOMs intact bilaterally Neck Neck: Yes full ROM, Yes no lymphadenopathy and Yes supple Resp Effort & Inspection: normal respiratory effort and able to speak in complete sentences Auscultation: clear to auscultation bilaterally Cardio Rate: regular rate Rhythm: regular rhythm Heart sounds: S1 normal heart sound present and S2 normal heart sound present GI Palpation (GI): Soft to palpation, nontender, no guarding and no masses Auscultation: normal bowel sounds General: Yes no CVA tenderness Male General Exam: No hernia Back/Spine/Pelvis Back: no CVA tenderness and No back tenderness Skin General skin exam: no rashes or lesions noted Neuro General: patient oriented x3, gait normal, moves all extremities, Normal light touch and pain sensation, no focal motor deficits and CN's II-XI intact bilaterally Cranial nerves: Yes Equal, round and reactive pupils present Cognition (Neuro): normal cognition Gait exam (Neuro): Normal gait present Motor exam (neuro): 5/5 motor strength present throughout Extrem General: Yes normal to inspection, Yes full ROM, Yes no joint enlargement, Yes no pedal edema and Yes normal gait Psych Appearance: grossly normal and well kempt Mental Status: mental status grossly normal Speech and movement: Normal speech and movement present Affect: normal affect Attitude: cooperative Thought process: Normal thought process present Thought content: Normal thought content present Results Reviewed Results Reviewed: Name: Delta Hutton Age/Sex: 64/M : 1960 Unit#: [id number] Attend Dr: Flori Cruz MD Re12/02/24 Status: DEP REF Location: [facility] Disch: SPEC : [id number] [place]: 12/02/24 STATUS: COMP REQ : [id number] RECD: 12/02/[address]: Flori Cruz MD COMP: 12/02/24 ENTERED: 12/02/[address] [facility] [address]: ORDERED: CBC Auto Diff Test Result Flag Reference WBC 5.1 4.8-10.8 X10*3/uL RBC 6.74 H 4.60-5.80 X10*6/uL HGB 16.1 14.0-18.0 g/dl HCT 49.8 42.0-52.0 % MCV 73.9 L 80.0-98.0 fL MCH 23.9 L 27.0-33.0 pg MCHC 32.3 31.0-36.0 g/dl RDW 17.3 H 11.0-16.0 % PLT 164 160-400 X10*3/uL MPV 10.5 9.4-12.4 fL Neut Pct Auto 58.4 45-73 % ImGran Pct Auto 0.4 0.0-0.4 % Lymp Pct Auto 27.3 20-40 % Woods Pct Auto 9.0 2-11 % Eos Pct Auto 3.3 0-4 % Baso Pct Auto 1.6 0-2 % NRBC Pct Auto 0.0 0.0-0.2 /100WBC ANC Neut Abs # 3.0 2.0-8.3 x10*3/uL ImGran Abs Auto 0.02 0.00-0.03 X10*3/uL Lymph Abs Auto 1.4 1.2-4.9 X10*3/uL Woods Abs Auto 0.5 0.1-1.2 X10*3/uL Eos Abs Auto 0.2 0.0-0.4 X10*3/uL Baso Abs Auto 0.1 0.0-0.2 X10*3/uL NRBC Abs Auto 0.000 0.0-0.012 X10*3/uL Name: Delta Hutton Age/Sex: 64/M : 1960 Unit#: [id number] Attend Dr: Flori Cruz MD Re12/02/24 Status: DEP [facility] Disch: SPEC : [id number] [place]: 12/02/24 STATUS: COMP REQ : [id number] RECD: 12/02/24-[address]: Flori Cruz MD COMP: 12/02/24-1109 ENTERED: 12/02/24-[address]: ORDERED: CMP Fast, Lipid Panel Test Result Flag Reference Sodium 137 135-145 mmol/L Potassium 4.9 3.3-5.1 mmol/L Slight Hemolysis.Interpret result with caution. CL 106 96-108 mmol/L CO2 23 22-29 mmol/L Gap 13 12-20 BUN 17 H 9-16 mg/dL Creat 1.02 0.5-1.4 mg/dL eGFR > 60 Chronic Kidney Disease: Estimated GFR < 60 mL/min/1.73m2 Severe Kidney Disease: Estimated GFR < 15 mL/min/1.73m2 FBS 105 H 60-99 mg/dL A fasting glucose from 100-125 mg/dl is considered impaired (pre-diabetes). CA 8.8 # 8.4-10.2 mg/dL Total Bili 1.0 0.0-1.0 mg/dL AST (GOT) 53 H 5-37 U/L Slight Hemolysis.Interpret result with caution. ALT (GPT) 67 H 0-40 U/L Protein, Total 7.6 6.5-8.0 g/dL Alb 4.1 3.5-5.0 g/dL Triglyceride 112 <150 mg/dL Desirable Triglyceride: less than 150 mg/dL Borderline High Triglyceride 150-199 mg/dL High Triglyceride: 200-499 mg/dL Very High Triglyceride: greater than or equal to 5OO mg/dL Cholesterol 229 H <200 mg/dL Desirable Cholesterol: less than 200 mg/dL Borderline High Cholesterol: 200-239 mg/dL High Cholesterol: greater than 239 mg/dL LDL Calculated 166 H <100 mg/dL Desirable LDL: less than 100 mg/dL Near Optimal/Above Optimal LDL: 110-129 mg/dL Borderline High LDL: 130-159 mg/dL High LDL: 160-189 mg/dL Very High LDL: greater than or equal to 190 mg/dL HDL 41 >40 mg/dL Desirable HDL: greater than 40 mg/dL Note: This HDL assay may give artificially low results in patients with liver disease. Alk Phos 71 39-117 U/L Laboratory Tests 12/02/24 06:55 Total PSA 12.30 H Coding Level of Care Code New Pt Prev Care >65yr (25128) Diagnoses Annual visit for general adult medical examination with abnormal findings Z00.01 Advanced directives, counseling/discussion Z71.89 High prostate specific antigen (PSA) R97.20 Encounter for screening for malignant neoplasm of colon Z12.11 Dyslipidemia E78.5 Essential hypertension I10 Additional Codes PHQ-9 - 77634 - PHQ-9 Billing: Yes ([id number]) Assessment & Plan Assessment & Plan (1) Annual visit for general adult medical examination with abnormal findings: Code(s): Z00.01 - Encounter for general adult medical examination with abnormal findings Plan: Reviewed recent fasting lab results with patient. Recommended dental visit every 6 months and regular eye exams, at least every 2 years. Take adequate calcium in diet and vitamin-D 3 at 2000 IU per cap once a day, in addition to weight-bearing exercises to help maintain good muscle tone and weight control. Instructed to do self-testicular exam check for any mass. Referred to GI Clinic for his colonoscopy screening. Declined getting further vaccinations (2) Advanced directives, counseling/discussion: Code(s): Z71.89 - Other specified counseling Plan: Initiated the conversation about Advanced Directives. Advanced Directives help patients prepare for current and future decisions about their medical treatment and place of care. Discussed with patient that it is a process where a patients current condition and prognosis are reviewed, their wishes for information regarding their illness are elicited, and likely medical dilemmas are presented and options discussed. Healthcare proxy form completed today. The form can be amended as needed, reviewed yearly and make changes as needed (3) High prostate specific antigen (PSA): Code(s): R97.20 - Elevated prostate specific antigen [PSA] Plan: Referral to urology ordered (4) Encounter for screening for malignant neoplasm of colon: Code(s): Z12.11 - Encounter for screening for malignant neoplasm of colon Plan: GI consult ordered for his colonoscopy screening (5) Dyslipidemia: Code(s): E78.5 - Hyperlipidemia, unspecified Category: Medical Plan: Reviewed recent fasting lipid profile with patient with elevated LDL cholesterol of seen . Started on rosuvastatin 5 mg taken every other day day , in addition to adherence to low-cholesterol diet and regular exercise, at least 30 minutes 3 to 4 times a week. Advised patient to make healthy food choices, eat more fruits, vegetables, whole grains, wild caught fish and low-fat dairy. Limit amount of meat and fried or fatty food products, as well as processed foods and fast foods. Follow-up scheduled with repeat fasting lipid panel in 3 months. (6) Essential hypertension: Code(s): I10 - Essential (primary) hypertension Category: Medical Plan: Blood pressure elevated today, reinforced importance following a low-salt diet, getting regular exercise, will see him back for follow-up and recheck blood pressure months. Orders: Orders Alanine Aminotransferase 02/27/25 E78.5 - Hyperlipidemia, unspecified, R97.20 - Elevated prostate specific antigen [PSA], Z12.11 - Encounter for screening for malignant neoplasm of colon, Z00.01 - Encounter for general adult medical examination with abnormal findings, Z71.89 - Other specified counseling, R74.01 - Elevation of levels of liver transaminase levels, F10.90 - Alcohol use, unspecified, uncomplicated, E66.9 - Obesity, unspecified Hemoglobin A1c 02/27/25 E78.5 - Hyperlipidemia, unspecified, R97.20 - Elevated prostate specific antigen [PSA], Z12.11 - Encounter for screening for malignant neoplasm of colon, Z00.01 - Encounter for general adult medical examination with abnormal findings, Z71.89 - Other specified counseling, R74.01 - Elevation of levels of liver transaminase levels, F10.90 - Alcohol use, unspecified, uncomplicated, E66.9 - Obesity, unspecified Glucose Fasting 02/27/25 E78.5 - Hyperlipidemia, unspecified, R97.20 - Elevated prostate specific antigen [PSA], Z12.11 - Encounter for screening for malignant neoplasm of colon, Z00.01 - Encounter for general adult medical examination with abnormal findings, Z71.89 - Other specified counseling, R74.01 - Elevation of levels of liver transaminase levels, F10.90 - Alcohol use, unspecified, uncomplicated, E66.9 - Obesity, unspecified Lipid Panel 02/27/25 E78.5 - Hyperlipidemia, unspecified, R97.20 - Elevated prostate specific antigen [PSA], Z12.11 - Encounter for screening for malignant neoplasm of colon, Z00.01 - Encounter for general adult medical examination with abnormal findings, Z71.89 - Other specified counseling, R74.01 - Elevation of levels of liver transaminase levels, F10.90 - Alcohol use, unspecified, uncomplicated, E66.9 - Obesity, unspecified Aspartate Amino Transferase 02/27/25 E78.5 - Hyperlipidemia, unspecified, R97.20 - Elevated prostate specific antigen [PSA], Z12.11 - Encounter for screening for malignant neoplasm of colon, Z00.01 - Encounter for general adult medical examination with abnormal findings, Z71.89 - Other specified counseling, R74.01 - Elevation of levels of liver transaminase levels, F10.90 - Alcohol use, unspecified, uncomplicated, E66.9 - Obesity, unspecified Referrals Urology Referral R97.20 - Elevated prostate specific antigen [PSA] Gastroenterology Referral Z12.11 - Encounter for screening for malignant neoplasm of colon Medications: New rosuvastatin 5 mg PO Q2D 45 tabs 1RF 3 months E78.5 - Hyperlipidemia, unspecified Discontinued ketorolac Discontinued Reason: Patient Completed Course 10 mg PO TID 5 days PRN 15 tabs 0RF pain cephalexin started on 06/26/21 ordered for 7 days Discontinued Reason: Patient Completed Course 500 mg PO QID 7 days 28 caps 0RF doxycycline hyclate Discontinued Reason: Patient Completed Course 100 mg PO BID 14 tabs 0RF oxycodone Discontinued Reason: Patient Completed Course 5 mg PO Q4-6H PRN 10 tabs 0RF pain
--- OUTSIDE RECORDS SUMMARY | 2024-12-03 08:25 | XMS_ITS | Clinical Summary ---
Author Organization [facility] Address [address] [place] [address] Care Team Providers Care Lathing Supervisor Name Role Phone Flori Cruz MD Primary Care Provider [phone] Allergies No known active allergies Medications Medication [...] this topic Medical Devices Implanted Type Area Field Adjuster Device Identifier Shelf Expiration Date Model / Serial / Lot Cement Bone Surg Simplex Radiopq Stry-Howm 7824-4-829-114 092 - [id number] Implanted:Qty: 1 on 08/18/2021 by Mikal Campbell MD at [facility] [place] [facility] Right: [employer] [id number] 09/27/2023 6191-1-010 / / [id number] Cement Bone Surg Simplex Radiopq Stry-Howm [id number] 092 - [id number] Implanted:Qty: 1 on 08/18/2021 by Mikal Campbell MD at [facility] [place] [facility] Right: [employer] [id number] 05/29/2022 [id number] / / [id number] Peg Fix Femoral Distal Stry-Howm [id number] 704 - [id number] Implanted:Qty: 1 on 08/18/2021 by Mikal Campbell MD at [facility] [place] [facility] Right: [employer] [id number] 11/17/2025 5575-X-000 / / [id number] Knee Pat Symmetric X3 29x8mm Stry-Howm [id number] 334 - [id number] Implanted:Qty: 1 on 08/18/2021 by Mikal Campbell MD at [facility] [place] [facility] Right: [employer] [id number] 07/15/2025 5550-G-298 / / [id number] Knee Tib Insrt Ps-X3 [id number] Stry-Howm [id number] - [id number] Implanted:Qty: 1 on 08/18/2021 by Mikal Campbell MD at [facility] [place] [facility] Right: [employer] [id number] 02/20/2026 5532-G-[id number] / / [id number] Knee Baseplt Tib Cmnt Sz5 Stry-Howm [id number] - [id number] Implanted:Qty: 1 on 08/18/2021 by Mikal Campbell MD at [facility] [place] [facility] Right: [employer] [id number] 04/26/2026 5520-B-500 / / [id number] Knee Fem Ps Trthln Sz [address] [id number] - [id number] Implanted:Qty: 1 on 08/18/2021 by Mikal Campbell MD at [facility] [place] [facility] Right: [employer] [id number] 02/25/2026 5515-F-402 / / [id number] Advance Directives For more information, please contact: [phone] Latest Code Status on File Code Status [...] way: discussion with patient . Care Teams Lathing Supervisor Relationship Specialty Start Date End Date Flori Cruz MD [address] [place] [address] PCP - General Internal Medicine 10/13/20
--- OUTSIDE RECORDS SUMMARY | 2024-12-03 08:26 | XMS_ITS ---
Author Name [facility] Organization Unknown Encounters Encounter Type Encounter Reason Primary Diagnosis Location Date Ambulatory [facility] [place] 10/30/2023 Ambulatory [facility] [place] 10/24/2023 Ambulatory [facility] [place] 09/19/2023 Ambulatory [facility] [place] 09/18/2023 Ambulatory [facility] [place] 06/21/2023 Ambulatory [facility] [place] 05/17/2023 Ambulatory [facility] [place] 04/12/2023
[2024-12-03 08:28] VITALS: BP 150/78; PULSE 91; RESP 16; TEMP 36.7; O2SAT 97; BMI 35.3
== END 2024-12-03 09:31 | disposition home or self-care (01) ==
PROVIDERS: PCP Internal Medicine; Visit Provider Internal Medicine
DX: Z00.01 Encounter for general adult medical examination with abnormal findings (principal); Z71.89 Other specified counseling; R97.20 Elevated prostate specific antigen [PSA]; Z12.11 Encounter for screening for malignant neoplasm of colon; E78.5 Hyperlipidemia, unspecified; I10 Essential (primary) hypertension

== ENCOUNTER → 2024-12-03 08:18 | Outpatient (BNVA) | payer OTHER, SELFPAY | PROVIDERS: PCP Internal Medicine; Visit Provider Internal Medicine | DX: Z00.01 Encounter for general adult medical examination with abnormal findings (principal); R97.20 Elevated prostate specific antigen [PSA]; E78.5 Hyperlipidemia, unspecified; I10 Essential (primary) hypertension; Z71.89 Other specified counseling | CPT/HCPCS: 96127 ==

== ENCOUNTER 2024-12-31 13:08 | Outpatient (AMB) | payer OTHER, SELFPAY ==
--- NOTE | 2024-12-31 13:24 | MHC.OFFVIS ---
Intake Visit Reasons: elevated PSA Intake Note: Patient is present for ELEVATED PSA Urology Medication:NONE Antibiotic Allergy:NONE Blood Thinner:NONE Food Preservation Scientist Required: No Allergies No Known Allergies Allergy (Verified 12/31/24 13:32) HPI Comments Details: Delta is a pleasant male. He is a patient of Dr. Cruz. He is referred for the following urologic conditions - elevated PSA History of Present Illness - The patient is a 64-year-old male presenting with elevated prostate-specific antigen (PSA) levels. - PSA level recorded at 12 ng/mL, above normal threshold of 5 ng/mL for age. - No family history of prostate cancer, but father had bladder cancer. - History of smoking, ceased in 1999, risk considered normal now. - No consistent urinary symptoms; symptoms only occur with alcohol intake. - Patient underwent several surgeries over the past eight years. Urinary Symptoms Review - Occasional nocturnal urination post alcohol intake. - Denial of urinary urgency, frequency, or improved symptoms. - No severe symptoms impacting quality of life. Results - Labs: Prostate-Specific Antigen (PSA) level is 12 ng/mL. Reports no family prostate issues Reports normal voiding parameters MODESTA 1+ boggy prostate bilateral more consistent with prostatitis Treat 2 weeks Bactrim with short course prednisone and repeat PSA Elevated PSA 1st time it has been measured No prior record PSA - 12/21 12.3 PFSH Medical History (Updated 12/31/24 @ 13:53 by Nj Burgos MD) Essential hypertension Obesity (BMI 30-39.9) Alcohol use disorder Elevated transaminase level Elevated PSA Dyslipidemia History of bucket handle tear of lateral meniscus Medial epicondylitis History of osteoarthritis Surgical History (Updated 12/03/24 @ 09:06 by Flori Cruz MD) H/O cervical discectomy History of total knee arthroplasty History of arthroscopy of shoulder History of elbow surgery History of carpal tunnel release Family History (Updated 12/03/24 @ 09:01 by Flori Cruz MD) Mother Peripheral arterial disease Father Coronary artery disease Hyperlipidemia Bladder cancer COPD (chronic obstructive pulmonary disease) Peripheral arterial disease Sister Arthritis Social History (Updated 12/13/24 @ 23:41 by Flori Cruz MD) Housing: House Alcohol intake: current Alcohol intake frequency: 0-2 drinks per day Alcohol type: beer Patient Tobacco Use Status: Former Tobacco user Tobacco use type: Cigarette Cigarette Packs Per Day: 1 e-Cigarette/Vaping Use: Never Used service: No Current occupational status: retired Cognitive needs: No Hearing needs: No Vision needs: Yes Review of Systems Const Denies chills and Denies fever(s) Card Reports no additional complaints and Denies syncope Resp Denies cough GI Denies abdominal pain and Denies heartburn Reports as per HPI and Denies change in libido Neuro Denies syncope Psych Denies change in libido Endo Denies change in libido Physical Exam Const General: cooperative, healthy appearing, comfortable and no acute distress Orientation/consciousness: patient oriented x3 HEENT Face and sinus: Yes normal facial exam Mouth: moist mucous membranes Neck Neck: Yes normal visual inspection, Yes full ROM and Yes trachea midline Chest Chest palpation & inspection: normal inspection of the chest Resp Effort & Inspection: normal respiratory effort, able to speak in complete sentences and no respiratory distress GI Inspection: Yes normal to inspection Rectal Exam - Male: Yes normal sphincter tone and Yes prostate normal Male General Exam: Yes normal external exam Penis: normal penis and circumcised Meatus: meatus normal Scrotum: scrotum normal Testes: Testes normal Back/Spine/Pelvis Cervical Spine: normal cervical lordosis Thoracic/Lumbar Spine: thoracic and lumbar spine normal to inspection Skin General skin exam: no rashes or lesions noted Neuro General: patient oriented x3, gait normal, tone normal and moves all extremities Extrem General: Yes normal to inspection and Yes capillary refill normal Assessment & Plan Assessment & Plan (1) Prostatitis: Code(s): N41.9 - Inflammatory disease of prostate, unspecified Category: Medical (2) Elevated PSA: Code(s): R97.20 - Elevated prostate specific antigen [PSA] Category: Medical Plan Plan Patient informed verbally consented to the use of an ambient scribe 1. Elevated Prostate-Specific Antigen Psa Initiate a two-week course of antibiotics to address possible chronic inflammation. Reassess PSA in four weeks. Consider biopsy if elevated. 2. History Of Tobacco Use No action required; smoking risk normalized after 22 years cessation. Discussion Notes I discussed with the patient the elevated nature of his PSA levels and the potential causes, including prostatitis and inflammation. I explained the absence of typical infection symptoms suggests inflammation. The proposed plan includes a two-week course of antibiotics to see if the inflammation subsides, with a follow-up PSA test four weeks later. I addressed the patient's history of smoking, noting that after 22 years, his risk is considered normalized. We discussed that if the PSA remains elevated post-treatment, a biopsy may be warranted. I ensured the patient understands the use of antibiotics and the possible need for future interventions. He expressed understanding and agreement with the management plan, acknowledging the importance of monitoring and future reassessment. Patient Instructions - Complete the course of prescribed antibiotics. - Recheck PSA levels as instructed in four weeks. - Avoid urinary irritants such as alcohol. - Monitor for any development of new urinary symptoms. - Report any unusual symptoms or side effects immediately. - Schedule and attend all follow-up appointments. Orders: Orders AMB Urinalysis Automated Today Z13.9 - Encounter for screening, unspecified PSA,Total (Free>4and<10) 4 Weeks N41.9 - Inflammatory disease of prostate, unspecified Medications: New prednisone 20 mg PO DAILY 3 days 3 tabs 0RF N20.0 - Calculus of kidney, N41.9 - Inflammatory disease of prostate, unspecified sulfamethoxazole-trimethoprim 800-160 mg (Bactrim DS) 1 tab PO BID 14 days 28 tabs 0RF N41.9 - Inflammatory disease of prostate, unspecified Patient Instructions: This note is constructed using voice recognition software. While every effort has been made to ensure accuracy locker attendant errors may have been included. Imaging studies, laboratory and physical exam results were discussed and reviewed in detail. No major barriers to patient understanding were identified. An opportunity to ask questions regarding the treatment plan was provided. All questions were answered. The patient expressed understanding and agreement with the above treatment plan. The patient is aware they should contact our office by phone for worsening of their current condition or the appearance of new urologic symptoms. Compliance is encouraged with any medications and followup testing that is ordered. It is a privilege to participate in the urologic care of your patient. If you have any questions or concerns regarding treatment for the above conditions, or other urologic issues, please do not hesitate to contact me. The office telephone contact is [phone]. Sincerely, Dr Nj Burgos MD, [facility] - Urology Compassionate Specialist Care for the Genitourinary System Coding Level of Care Code New Pt Level 4 (42477) Diagnoses Prostatitis N41.9 Elevated PSA R97.20
== END 2024-12-31 13:58 | disposition home or self-care (01) ==
LOC: HO.HUSH 13:08
PROVIDERS: PCP Internal Medicine; Visit Provider Urology
DX: N41.9 Inflammatory disease of prostate, unspecified (principal); R97.20 Elevated prostate specific antigen [PSA]; Z13.9 Encounter for screening, unspecified
CPT/HCPCS: 99204

== ENCOUNTER → 2024-12-31 13:08 | Outpatient (BNVA) | payer OTHER, SELFPAY | PROVIDERS: PCP Internal Medicine; Visit Provider Urology | DX: R97.20 Elevated prostate specific antigen [PSA] (principal); N41.9 Inflammatory disease of prostate, unspecified; Z13.9 Encounter for screening, unspecified; Z80.52 Family history of malignant neoplasm of bladder | CPT/HCPCS: 81003 ==

== ENCOUNTER 2025-01-27 08:04 | Outpatient (AMB) | payer OTHER, SELFPAY ==
--- NOTE | 2025-01-27 08:10 | MHC.OFFVIS ---
Vital Signs 01/27/25 08:16 Height 5 ft 8 in Weight 226 lb BMI 34.4 BP 168/77 H Blood Pressure Location Lt brachial Position Sitting Pulse 76 Pulse Oximetry (%) 97 Oxygen Delivery Method Room Air Intake Visit Reasons: colo screening Intake Note: Patient new consult for pre Colonoscopy screening. Patient cc: hx of hemorroids. Denies any other GI issues. Geology Professor Required: No Accompanied by: Self / Same As Patient Allergies No Known Allergies Allergy (Verified 01/27/25 08:11) Medication List - Last Reconciled 01/27/25 by Gi Marti CNP bisacodyl 5 mg PO ONCE 1 day polyethylene glycol 3350 (Miralax) 238 grams PO ONCE rosuvastatin 5 mg PO Q2D 3 months HPI HPI colo screening: Details: Patient is a 64-year-old male with PMH of obesity, hypertension, hyperlipidemia, alcohol use disorder and OA. Referred by PCP for pre colonoscopy screening Delta is here for his second colonoscopy, the first being approximately eight years ago with normal results. His stools are regular with no issues of constipation, diarrhea, or blood. He denies chronic abdominal pain, nausea, or vomiting but does report occasional heartburn, especially when consuming spicy food late in the evening. Heartburn is relieved by Tums and occurs infrequently, not requiring daily medication. There are no symptoms of regurgitation or dysphagia. His appetite is stable but notes a weight fluctuation, recently reducing from 232 pounds in November to 226 pounds presently. He attributes weight changes to seasonal activity variations and lifestyle changes post-knee surgery. Social hx: -Diet:Varied, enjoys spicy food -Alcohol: Consumes ice beer 4-5 times every other day or on weekends -Tobacco: Quit in 2001 -Drug Use: Denies recreational drug use -Occupation: Retired, previously worked in machinery setup and operation - family hx as below -denies personal hx of CA -denies significant cardiopulmonary history -reports post procedural n/v, otherwise tolerated anesthesia in the past without difficulty. [facility] Medical History (Updated 01/28/25 @ 20:25 by Gi Marti CNP) Mild acid reflux Colon cancer screening Essential hypertension Obesity (BMI 30-39.9) Alcohol use disorder Elevated transaminase level Elevated PSA Dyslipidemia History of bucket handle tear of lateral meniscus Medial epicondylitis History of osteoarthritis Surgical History H/O cervical discectomy History of total knee arthroplasty History of arthroscopy of shoulder History of elbow surgery History of carpal tunnel release Family History Mother Peripheral arterial disease Father Coronary artery disease Hyperlipidemia Bladder cancer COPD (chronic obstructive pulmonary disease) Peripheral arterial disease Sister Arthritis Social History Housing: House Alcohol intake: current Alcohol intake frequency: 0-2 drinks per day Alcohol type: beer Comment: 15 cancer bupropion Patient Tobacco Use Status: Former Tobacco user Tobacco use type: Cigarette Cigarette Packs Per Day: 1 e-Cigarette/Vaping Use: Never Used service: No Current occupational status: retired Cognitive needs: No Hearing needs: No Vision needs: Yes Review of Systems Const Reports as per HPI ENT Reports as per HPI Card Reports as per HPI Resp Reports as per HPI GI Reports as per HPI Reports as per HPI Physical Exam Vital Signs: Last Vital Signs Pulse 76 01/27/25 08:16 BP 168/77 H 01/27/25 08:16 Pulse Ox 97 01/27/25 08:16 Oxygen Delivery Method Room Air 01/27/25 08:16 BMI result Body Mass Index 34.4 Const General: healthy appearing, no acute distress and well developed Nutritional Appearance: average body habitus Orientation/consciousness: patient oriented x3 HEENT Head: Yes normal to inspection, Yes normocephalic and Yes atraumatic Face and sinus: Yes normal facial exam Eyes General: appearance normal, both eyes and all related structures Neck Neck: Yes normal visual inspection Resp Effort & Inspection: normal respiratory effort, able to speak in complete sentences, no tracheal deviation and symmetric chest movement Auscultation: clear to auscultation bilaterally Cardio Jugular venous distension: no JVD Rate: regular rate Rhythm: regular rhythm Heart sounds: S1 normal heart sound present, S2 normal heart sound present, no gallops and no murmurs GI Inspection: Yes normal to inspection, No distended and Yes obesity Palpation (GI): Soft to palpation, not firm, nontender and No hepatosplenomegaly present Auscultation: normal bowel sounds Neuro General: patient oriented x3 Gait exam (Neuro): Normal gait present Psych Appearance: grossly normal Mental Status: mental status grossly normal Speech and movement: Normal speech and movement present Affect: normal affect Attitude: cooperative Thought process: Normal thought process present Thought content: Normal thought content present Insight: Good insight present (Psych) Judgement: Good judgement present (Psych) Assessment & Plan Assessment & Plan (1) Colon cancer screening: Code(s): Z12.11 - Encounter for screening for malignant neoplasm of colon Category: Medical Plan: Last colonoscopy approximately 10 years ago, at outside facility with reports of normal findings. Standard 10 years screening, without alarm features. Medications: -prescriptions for laxative tablets and MiraLax sent to pharmacy; instructions for Gatorade purchase and clear liquid diet given. Patient educated on scheduling process, procedure preparation, including avoiding certain foods and ensuring clear liquid intake Advised on necessity for ride post-procedure due to sedation. (2) Mild acid reflux: Code(s): K21.9 - Gastro-esophageal reflux disease without esophagitis Category: Medical Plan: mild, infrequent, responsive to OTC. Discussed upper endoscopy at time of colonoscopy, Delta declined. We believe this is reasonable given minimal symptoms. Medications: OTC antacids (e.g., Tums) PRN Lifestyle Modifications: Avoid spicy foods, especially in evening Follow-Up: Routine or PRN if symptoms increase in frequency/severity Plan Follow-up after colonoscopy as needed Time: I spent a total of 25 minutes on the date of encounter which includes: Preparing to see the patient (reviewed previous documentation, test results and medical history) Performing a medically appropriate exam and/or evaluation Ordering medications, tests, and procedures Documenting clinical information in the health record Medications: New bisacodyl Take four tablets once for 1 day per colonoscopy instructions 5 mg PO ONCE 4 tabs 0RF 1 day polyethylene glycol 3350 (Miralax) per colonoscopy prep instructions 238 grams PO ONCE 238 grams 0RF Coding Level of Care Code New Pt New Pt Level 3 (71449) Patient Type New Diagnoses Colon cancer screening Z12.11 Mild acid reflux K21.9
--- OUTSIDE RECORDS SUMMARY | 2025-01-27 08:10 | XMS_ITS ---
Author Name [facility] Organization Unknown Encounters Encounter Type Encounter Reason Primary Diagnosis Location Date Ambulatory [facility] [place] 10/30/2023 Ambulatory [facility] [place] 10/24/2023 Ambulatory [facility] [place] 09/19/2023 Ambulatory [facility] [place] 09/18/2023 Ambulatory [facility] [place] 06/21/2023 Ambulatory [facility] [place] 05/17/2023 Ambulatory [facility] [place] 04/12/2023
--- OUTSIDE RECORDS SUMMARY | 2025-01-27 08:10 | XMS_ITS | Clinical Summary ---
Author Organization [facility] Address [address] [place] [address] Care Team Providers Care Supervisor Brine Name Role Phone Flori Cruz MD Primary Care Provider [phone] [phone] Allergies No known active allergies Medications Medication [...] 64 08/19/2021 12:24 PM EST Temperature 37.3 C (99.2 F) 08/19/2021 12:24 PM EST Respiratory Rate 18 08/19/2021 12:24 PM EST [...] 2023-2 5 season) 2024 12/06/2020 Influenza Vaccine (Season Ended) 2025 RSV Adult > 60+ Yrs or Pregn ant (1 - 1-dose 75+ series) 2033 Hepatitis B Vaccines Aged Out No long er eligible based on patient's age to complete this topic RSV Ped < 20 months Aged Out No longe r eligible based on patient's age to complete this topic Medical Devices Implanted Type Area Coin Machine Mechanic Device Identifier Shelf Expiration Date Model / Serial / Lot Cement Bone Surg Simplex Radiopq Stry-Howm [id number] 092 - [id number] Implanted:Qty: 1 on 08/18/2021 by Mikal Campbell MD at [facility] Right: Knee [employer] [id number] 09/27/2023 6191-1-010 / / [id number] Cement Bone Surg Simplex Radiopq Stry-Howm 4932-6-537-114 092 - [id number] Implanted:Qty: 1 on 08/18/2021 by Mikal Campbell MD at [facility] [place] [facility] Right: Knee [employer] [id number] 05/29/2022 6191-1-010 / / [id number] Peg Fix Femoral Distal Stry-Howm 3964-X-[id number] 704 - [id number] Implanted:Qty: 1 on 08/18/2021 by Mikal Capmbell MD at [facility] Right: Knee [employer] [id number] 11/17/2025 5575-X-000 / / [id number] Knee Pat Symmetric X3 29x8mm Stry-Howm [id number] 334 - [id number] Implanted:Qty: 1 on 08/18/2021 by Mikal Campbell MD at [facility] [place] [facility] Right: Knee [employer] [id number] 07/15/2025 5550-G-298 / / [id number] Knee Tib Insrt Ps-X3 [id number] Stry-Howm 7913-[id number]-[id number] 751 - [id number] Implanted:Qty: 1 on 08/18/2021 by Mikal Campbell MD at [facility] [place] [facility] Right: Knee [employer] [id number] 02/20/2026 5532-G-513 / / [id number] Knee Baseplt Tib Cmnt Sz5 Stry-Howm 4438-H-[id number] 191 - [id number] Implanted:Qty: 1 on 08/18/2021 by Mikal Campbell MD at [facility] Right: Knee [employer] [id number] 04/26/2026 5520-B-500 / / [id number] Knee Fem Ps Trthln Sz [address] [id number] 740 - [id number] Implanted:Qty: 1 on 08/18/2021 by Mikal Campbell MD at [facility] Right: Knee [employer] [id number] 02/25/2026 5515-F-402 / / [id number] Advance Directives For more information, please contact: [phone] Latest Code Status on File Code Status [...] way: discussion with patient . Care Teams Supervisor Brine Relationship Specialty Start Date End Date Flori Cruz MD [address] [place] [address] PCP - General Internal Medicine 10/13/20
[2025-01-27 08:16] VITALS: BP 168/77; PULSE 76; O2SAT 97; BMI 34.4
== END 2025-01-27 08:46 | disposition home or self-care (01) ==
LOC: HO.HGI 08:05
PROVIDERS: PCP Internal Medicine; Visit Provider Nurse Practitioner Family
DX: Z01.818 Encounter for other preprocedural examination (principal); Z12.11 Encounter for screening for malignant neoplasm of colon; K21.9 Gastro-esophageal reflux disease without esophagitis
CPT/HCPCS: 99203

== ENCOUNTER 2025-03-05 06:08 | Outpatient (REF) | payer OTHER, SELFPAY ==
[2025-03-05 10:29] LABS: Hemoglobin A1C 168.7442 umol/L; Total Hemoglobin (HGBA1C) 4025.5604 umol/L
[2025-03-05 10:48] LABS: Alanine Aminotransferase 49 U/L (0-40); Aspartate Amino Transferase 36 U/L (5-37); Cholesterol 198 mg/dL (<200); HDL Cholesterol 42 mg/dL (>40); Triglycerides 124 mg/dL (<150)
[2025-03-05 11:06] LABS: PSA,Total (Free>4and<10) 11.77 ng/mL (0.00-4.00)
== END 2025-03-05 06:09 | disposition home or self-care (01) ==
LOC: HO.HMGCLDS 06:08
PROVIDERS: Urology; PCP Internal Medicine; Visit Provider Internal Medicine
DX: Z00.01 Encounter for general adult medical examination with abnormal findings (principal); N41.9 Inflammatory disease of prostate, unspecified; E78.5 Hyperlipidemia, unspecified; F10.90 Alcohol use, unspecified, uncomplicated; E66.9 Obesity, unspecified; R97.20 Elevated prostate specific antigen [PSA]; R74.01 Elevation of levels of liver transaminase levels; Z12.11 Encounter for screening for malignant neoplasm of colon; Z71.89 Other specified counseling; Z13.0 Encounter for screening for diseases of the blood and blood-forming organs and certain disorders involving the immune mechanism; Z12.5 Encounter for screening for malignant neoplasm of prostate
CPT/HCPCS: 36415; 80061; 82947; 83036; 84153; 84450; 84460

== ENCOUNTER 2025-03-09 07:45 | Outpatient (AMB) | payer OTHER, MEDICARE, MEDICAID, SELFPAY ==
--- OUTSIDE RECORDS SUMMARY | 2025-03-09 07:47 | XMS_ITS | Clinical Summary ---
Author Organization [facility] Address [address] [place] [address] Care Team Providers Care Core Driller Name Role Phone Flori Cruz MD Primary Care Provider +1 [phone] Allergies No known active allergies Medications Medication [...] 5 season) 2024 12/06/2020 Influenza Vaccine (#1) 2025 RSV Adult > 60+ Yrs or Pregn ant (1 - 1-dose 75+ series) 2033 Hepatitis B Vaccines Aged Out No long er eligible based on patient's age to complete this topic RSV Ped < 20 months Aged Out No longe r eligible based on patient's age to complete this topic Medical Devices Implanted Type Area Etcher Electrolytic Device Identifier Shelf Expiration Date Model / Serial / Lot Cement Bone Surg Simplex Radiopq Stry-Howm [id number] 092 - [id number] Implanted:Qty: 1 on 08/18/2021 by Mikal Campbell MD at [facility] [place] [facility] Right: Knee [employer] [id number] 09/27/2023 6191-1-010 / / [id number] Cement Bone Surg Simplex Radiopq Stry-Howm [id number] 092 - [id number] Implanted:Qty: 1 on 08/18/2021 by Mikal Campbell MD at [facility] [place] [facility] Right: Knee [employer] [id number] 05/29/2022 6191-1-010 / / [id number] Peg Fix Femoral Distal Stry-Howm 0552-[id number]-[id number] 704 - [id number] Implanted:Qty: 1 on 08/18/2021 by Mikal Campbell MD at [facility] [place] [facility] Right: Knee [employer] [id number] 11/17/2025 5575-X-000 / / [id number] Knee Pat Symmetric X3 29x8mm Stry-Howm [id number]-[id number] 334 - [id number] Implanted:Qty: 1 on 08/18/2021 by Mikal Campbell MD at [facility] [place] [facility] Right: Knee [employer] [id number] 07/15/2025 5550-G-298 / / [id number] Knee Tib Insrt Ps-X3 [id number] Stry-Howm [id number] 751 - [id number] Implanted:Qty: 1 on 08/18/2021 by Mikal Campbell MD at [facility] [place] [facility] Right: Knee [employer] [id number] 02/20/2026 5532-G-513 / / [id number] Knee Baseplt Tib Cmnt Sz5 Stry-Howm [id number] 191 - [id number] Implanted:Qty: 1 on 08/18/2021 by Mikal Campbell MD at [facility] [place] [facility] Right: Knee [employer] [id number] 04/26/2026 5520-B-500 / / [id number] Knee Fem Ps Trthln Sz [address] [id number] 740 - [id number] Implanted:Qty: 1 on 08/18/2021 by Mikal Campbell MD at [facility] Right: Knee [employer] [id number] 02/25/2026 5515-F-402 / / [id number] Advance Directives For more information, please contact: [phone] Latest Code Status on File Code Status [...] way: discussion with patient . Care Teams Core Driller Relationship Specialty Start Date End Date Flori Cruz MD [address] [place] [address] PCP - General Internal Medicine 10/13/20
[2025-03-09 07:58] VITALS: BP 130/70; PULSE 67; RESP 15; TEMP 36.8; O2SAT 95; BMI 35.6
--- NOTE | 2025-03-09 07:58 | A.OFFPC_ITS ---
Vital Signs 03/09/25 07:58 Height 5 ft 8 in Weight 234 lb BMI 35.6 BP 130/70 Blood Pressure Location Rt brachial Position Sitting Respiration 15 Pulse 67 Pulse Source Pulse Oximeter Temp 98.3 F Temp Source Oral Pulse Oximetry (%) 95 Oxygen Delivery Method Room Air Intake Visit Reasons: 3 months Intake Note: Pt is here today for his 3mo. f/u labs Allergies No Known Allergies Allergy (Verified 03/09/25 07:58) Tobacco use date assessed: 03/09/25 Fall risk assessment: No Falls in past year Last assessed Fall Risk: 03/09/25 Dental Screening Dental Screen Date: 03/09/25 Did you have a dental visit in the last 12 months?: No Did you have a dental problem in the last 6 months where you did not have access to dental care?: No Was dental information given to patient?: Patient declined HPI 3 months HPI Details - The patient is a 64-year-old male pres enting with prediabetes, hyperlipidemia, elevated PSA, and hypertension, here for his follow-up.. - Prediabetes: The patient was informed that his blood sugar levels are in the prediabetic range, with a fasting glucose of 105 mg/dL and an A1c of 6%. - Hyperlipidemia: The patient has a hist ory of hyperlipidemia, with cholesterol levels previously at 229 mg/dL, which have decreased to 198 mg/dL, and LDL now at 132 mg/dL, after starting rosuvastatin. - Elevated PSA: The patient has an eleva irma PSA level, which was 12.3 ng/mL and has decreased to 11.7 ng/mL after a course of antibiotics. - Hypertension: The patient has a histor y of hypertension, with a recent s ystolic reading of 148 mmHg, which decreased to 130/70 mmHg during this visit. [facility] Medical History Mild acid reflux Colon cancer screening Essential hypertension Obesity (BMI 30-39.9) Alcohol use disorder Elevated transaminase level Elevated PSA Dyslipidemia History of bucket handle tear of lateral meniscus Medial epicondylitis History of osteoarthritis Surgical History H/O cervical discectomy History of total knee arthroplasty History of arthroscopy of shoulder History of elbow surgery History of carpal tunnel release Family History Mother Peripheral arterial disease Father Coronary artery disease Hyperlipidemia Bladder cancer COPD (chronic obstructive pulmonary disease) Peripheral arterial disease Sister Arthritis Social History Housing: House Alcohol intake: current Alcohol intake frequency: 0-2 drinks per day Alcohol type: beer Comment: 15 cancer bupropion Patient Tobacco Use Status: Former Tobacco user Tobacco use type: Cigarette Cigarette Packs Per Day: 1 e-Cigarette/Vaping Use: Never Used service: No Current occupational status: retired Cognitive needs: No Hearing needs: No Vision needs: Yes Questionnaire PHQ-9 Over the last 2 weeks, how often have you been bothered by any of the following problems? Depression Screening Interpretation: Negative Depression Screening Done: Yes Source: Developed by Drs. Germain Marie, Jamari Romo and colleagues, with an educational keaton from [employer]. Thrive Questionnaire Date Thrive assessed: 12/03/24 I am a: Patient What is your living situation today?: I have a steady place to live Within the past 12 months, did the food you bought not last and you didn't have the money to get more?: Never true Within the past 12 months, did you worry whether your food would run out before you got money to buy more?: Never true Do you have trouble paying for medicines?: No Do you have trouble getting transportation to medical appointments?: No Do you have trouble paying your heating and electricity bill?: No Do you have trouble taking care of your child, family member or friend?: No Do you have trouble with day-to-day activities such as bathing, preparing meals, shopping, managing finances, etc.?: No Are you currently unemployed and looking for a job?: No Are you interested in more education?: No Please select the resources that you would like help with: None Currently or been in a relationship where the following occur: No concerns reported THRIVE Score: 0 SONI-7 AMB Questionnaire SONI-7 Date SONI - 7 assessed: 12/03/24 Source: Developed by Drs. Germain Marie, Batool Mena, Jamari Dominguez and colleagues, with an educational keaton from [employer]. Review of Systems Const Denies body aches, Denies fatigue, Denies fever(s) and Denies headache(s) Eyes Denies change in vision ENT Denies dizziness and Denies headache(s) Card Denies chest pain, Denies lightheadedness, Denies palpitations and Denies dyspne a Resp Denies chest congestion, Denies cough, Denies dyspnea and Denies wheezing GI Denies abdominal pain, Denies change in bowel habits and Denies heartburn Denies hematuria, Denies difficulty urinating, Denies dysuria, Denies urinary frequency and Denies urinary urgency Musc Details: Recurrent posterior neck and shoulder pain Skin/Breast Denies lesions and Denies rash Neuro Denies dizziness and Denies headache(s) Psych Reports no additional complaints Endo Denies fatigue, Denies polydipsia, Denies polyuria and Denies palpitations Gerard/Lymph Denies easy bruising Aller/Immun Denies seasonal rhinorrhea and Denies wheezing Physical exam (Primary Care) Vital Signs: Last Vital Signs Temp 98.3 F 03/09/25 07:58 Pulse 67 03/09/25 07:58 Resp 15 03/09/25 07:58 BP 130/70 03/09/25 07:58 Pulse Ox 95 03/09/25 07:58 Oxygen Delivery Method Room Air 03/09/25 07:58 BMI result Body Mass Index 35.6 Tobacco/Smoking Status: Tobacco use Status Tobacco use date assessed 03/09/25 03/09/25 07:59 Patient Tobacco Use Status Former Tobacco user 03/09/25 07:59 Tobacco use type Cigarette 03/09/25 07:59 e-Cigarette/Vaping Use Never Used 03/09/25 07:59 Depression Screening Interpretation: Negative Thrive Assessment: Date of Thrive Assessment Date Thrive assessed 12/03/24 03/09/25 07:59 Currently or been in a relationship where the following occur: No concerns reported Const General: no acute distress and alert Orientation/consciousness: patient oriented x3 HENMT Head: Yes normocephalic Ears: external ears normal, TM's normal bilaterally and EAC's normal General nose exam: Normal external nose present and No nasal discharge present Face and sinus: Yes face symmetric Mouth: Normal oral and palatal mucosa present, oropharynx normal and moist mucous membranes Eyes General: appearance normal, both eyes and all related structures Eyelids: Yes eyelids normal Conjunctivae: conjunctivae normal Sclerae: sclerae normal Pupils: Equal, round and reactive pupils present EOM: EOMs intact bilaterally Neck Neck: Yes full ROM, Yes no lymphadenopathy and Yes supple Resp Effort & Inspection: normal respiratory effort and able to speak in complete sentences Auscultation: clear to auscultation bilaterally Cardio Rate: regular rate Rhythm: regular rhythm Heart sounds: S1 normal heart sound present and S2 normal heart sound present GI Palpation (GI): Soft to palpation, nontender, no guarding and no masses Auscultation: normal bowel sounds General: Yes no CVA tenderness Male General Exam: No hernia Back/Spine/Pelvis Back: no CVA tenderness and No back tenderness Skin General skin exam: no rashes or lesions noted Neuro General: patient oriented x3, gait normal, moves all extremities, Normal light touch and pain sensation, no focal motor deficits and CN's II-XI intact bilaterally Cranial nerves: Yes Equal, round and reactive pupils present Cognition (Neuro): normal cognition Gait exam (Neuro): Normal gait present Motor exam (neuro): 5/5 motor strength present throughout Extrem General: Yes normal to inspection, Yes full ROM, Yes no joint enlargement, Yes no pedal edema and Yes normal gait Psych Appearance: grossly normal and well kempt Mental Status: mental status grossly normal Speech and movement: Normal speech and movement present Affect: normal affect Attitude: cooperative Thought process: Normal thought process present Thought content: Normal thought content present Results Reviewed Results Reviewed: Laboratory Tests 03/05/25 06:18 Estimat Average Glucose 126 Hemoglobin A1c % 6.0 Name: Delta Hutton Age/Sex: 64/M : 1960 Unit#: [id number] Attend Dr: Flori Cruz MD Re03/05/25 Status: DEP REF Location: [facility] Disch: SPEC : [id number] [place]: 03/05/25 STATUS: COMP REQ : [id number] RECD: 03/05/25-[address]: Flori Cruz MD COMP: 03/05/25 ENTERED: 03/05/[address]: ORDERED: Glu Fasting, AST, ALT, Lipid Panel Test Result Flag Reference FBS 105 H 60-99 mg/dL A fasting glucose from 100-125 mg/dl is considered impaired (pre-diabetes). AST (GOT) 36 5-37 U/L ALT (GPT) 49 H 0-40 U/L Triglyceride 124 <150 mg/dL Desirable Triglyceride: less than 150 mg/dL Borderline High Triglyceride 150-199 mg/dL High Triglyceride: 200-499 mg/dL Very High Triglyceride: greater than or equal to 5OO mg/dL Cholesterol 198 <200 mg/dL Desirable Cholesterol: less than 200 mg/dL Borderline High Cholesterol: 200-239 mg/dL High Cholesterol: greater than 239 mg/dL LDL Calculated 132 H <100 mg/dL Desirable LDL: less than 100 mg/dL Near Optimal/Above Optimal LDL: 110-129 mg/dL Borderline High LDL: 130-159 mg/dL High LDL: 160-189 mg/dL Very High LDL: greater than or equal to 190 mg/dL HDL 42 >40 mg/dL Desirable HDL: greater than 40 mg/dL Note: This HDL assay may give artificially low results in patients with liver disease. Coding Level of Care Code Est Pt Level 4 (05549) Complex EM visit Add On G2211 Diagnoses Dyslipidemia E78.5 Elevated PSA R97.20 Essential hypertension I10 Assessment & Plan Assessment & Plan (1) Dyslipidemia: Code(s): E78.5 - Hyperlipidemia, unspecified Category: Medical (2) Elevated PSA: Code(s): R97.20 - Elevated prostate specific antigen [PSA] Category: Medical (3) Essential hypertension: Code(s): I10 - Essential (primary) hypertension Category: Medical Plan advised to reduce carbohydrate intake and get regular exercise to manage blood sugar levels effectively. For hyperlipidemia, the patient will continue taking rosuvastatin, with the addition of CoQ10 to mitigate muscle pain, and will have cholesterol levels rechecked in six months. Regarding the elevated PSA, the patient is advised to follow up with Dr. Burgos, for further evaluation and potential biopsy if PSA levels remain elevated. For hypertension, the patient is advised to monitor blood pressure regularly and maintain lifestyle modifications to manage blood pressure effectively. Patient was informed and verbally consented to the use of an ambient scribe for clinic note documentation during this visit. Orders: Orders Basic Metabolic Panel Fasting 08/01/25 E78.5 - Hyperlipidemia, unspecified, I10 - Essential (primary) hypertension, R97.20 - Elevated prostate specific antigen [PSA] Lipid Panel 08/01/25 E78.5 - Hyperlipidemia, unspecified, I10 - Essential (primary) hypertension, R97.20 - Elevated prostate specific antigen [PSA] Hemoglobin A1c 08/01/25 E78.5 - Hyperlipidemia, unspecified, I10 - Essential (primary) hypertension, R97.20 - Elevated prostate specific antigen [PSA] Aspartate Amino Transferase 08/01/25 E78.5 - Hyperlipidemia, unspecified, I10 - Essential (primary) hypertension, R97.20 - Elevated prostate specific antigen [PSA] Alanine Aminotransferase 08/01/25 E78.5 - Hyperlipidemia, unspecified, I10 - Essential (primary) hypertension, R97.20 - Elevated prostate specific antigen [PSA] Creatine Kinase Total 08/01/25 E78.5 - Hyperlipidemia, unspecified, I10 - Essential (primary) hypertension, R97.20 - Elevated prostate specific antigen [PSA]
== END 2025-03-09 08:46 | disposition home or self-care (01) ==
LOC: HO.HMCC 07:45
PROVIDERS: PCP Internal Medicine; Visit Provider Internal Medicine
DX: E78.5 Hyperlipidemia, unspecified (principal); R97.20 Elevated prostate specific antigen [PSA]; I10 Essential (primary) hypertension

== ENCOUNTER 2025-04-09 05:54 | Day surgery (SDC) | payer OTHER, SELFPAY ==
--- OUTSIDE RECORDS SUMMARY | 2025-03-18 10:10 | XMS_ITS | Clinical Summary ---
Author Organization [facility] Address [address] [place] [address] Care Team Providers Care Supervisor Silvering Department Name Role Phone Flori Cruz MD Primary Care Provider [phone] Allergies No known active allergies Medications Medication [...] 1 No Sig Med Hx Sister 2 Laeyda No Sig Med Hx Sister 3 Radha [...] this topic Medical Devices Implanted Type Area Information Security Specialist Device Identifier Shelf Expiration Date Model / Serial / Lot Cement Bone Surg Simplex Radiopq Stry-Howm [id number] 092 - [id number] Implanted:Qty: 1 on 08/18/2021 by Mikal Campbell [place] [facility] [place] [facility] Right: Knee [employer] [id number] 09/27/2023 6191-1-010 / / [id number] Cement Bone Surg Simplex Radiopq Stry-Howm [id number] [id number] - [id number] Implanted:Qty: 1 on 08/18/2021 by Mikal Campbell MD at [facility] [place] [facility] Right: Knee [employer] [id number] 05/29/2022 6191-1-010 / / [id number] Peg Fix Femoral Distal Stry-Howm [id number]-[id number] 704 - [id number] Implanted:Qty: 1 on 08/18/2021 by Mikal Campbell MD at [facility] [place] [facility] Right: Knee [employer] [id number] 11/17/2025 5575-X-000 / / [id number] Knee Pat Symmetric X3 29x8mm Stry-Howm 6226-O-[id number] 334 - [id number] Implanted:Qty: 1 on 08/18/2021 by Mikal Campbell MD at [facility] [place] [facility] Right: Knee [employer] [id number] 07/15/2025 5550-G-298 / / [id number] Knee Tib Insrt Ps-X3 [id number] Stry-Howm 5120-[id number] [id number] - [id number] Implanted:Qty: 1 on 08/18/2021 by Mikal Campbell MD at [facility] [place] [facility] Right: K[employer] [id number] 02/20/2026 5532-G-[id number] / / [id number] Knee Baseplt Tib Cmnt Sz5 Stry-Howm 8307-X-[id number] 191 - [id number] Implanted:Qty: 1 on 08/18/2021 by Mikal Campbell MD at [facility] [place] [facility] Right: Knee [employer] [id number] 04/26/2026 5520-B-500 / / [id number] Knee Fem Ps Trthln Sz 4 [address] [place] [id number] 740 - [id number] Implanted:Qty: 1 on 08/18/2021 by Mikal Campbell MD at [facility] [place] Right: Knee [employer] Orth[employer]ed[employer] [id number] 02/25/2026 5515-F-402 / / [id number] Advance Directives For more information, please contact: [phone] Latest Code Status on File Code Status [...] discussion with patient . Care Teams Supervisor Silvering Department Relationship Specialty Start Date End Date Flori Cruz MD [address] [place] [address] PCP - General Internal Medicine 10/13/20
[2025-04-07 14:17] VITALS: BMI 35.6
[2025-04-09 06:40] VITALS: BMI 34.9
[2025-04-09 06:57] VITALS: BP 158/81; PULSE 65; RESP 16; TEMP 36.5; O2SAT 96
[2025-04-09] MEDS: Lactated Ringers 1,000 ML 100 ML IVCONT (07:00)
--- NOTE | 2025-04-09 07:04 | HO.ANESPROP2 ---
Documented by User: Joya Frankel NP 04/08/25 08:20 HPI - Anesthesia Eval Consult details Narrative: 64yo M for Colonoscopy Daily ETOH PMFSH Active Problems Active Problems: All Active Problems Mild acid reflux (Acute) Colon cancer screening (Acute) Prostatitis (Acute) Essential hypertension (Acute) Obesity (BMI 30-39.9) (Acute) Alcohol use disorder (Acute) Elevated transaminase level (Acute) Elevated PSA (Acute) Dyslipidemia (Acute) History of osteoarthritis (Acute) Past Medical History Medical History Mild acid reflux Colon cancer screening Essential hypertension Obesity (BMI 30-39.9) Alcohol use disorder Elevated transaminase level Elevated PSA Dyslipidemia History of bucket handle tear of lateral meniscus Medial epicondylitis History of osteoarthritis Family History Family History Mother Peripheral arterial disease Father Coronary artery disease Hyperlipidemia Bladder cancer COPD (chronic obstructive pulmonary disease) Peripheral arterial disease Sister Arthritis Surgical History Surgical History H/O cervical discectomy History of total knee arthroplasty History of arthroscopy of shoulder History of elbow surgery History of carpal tunnel release Social History Social History Housing: House Alcohol intake: current Alcohol intake frequency: 0-2 drinks per day Alcohol type: beer Comment: 15 cancer bupropion Patient Tobacco Use Status: Former Tobacco user Tobacco use type: Cigarette Cigarette Packs Per Day: 1 e-Cigarette/Vaping Use: Never Used Use of substances other than those prescribed or required for medical reasons: No Advance Directives: No Advance Directives Information Provided: Yes service: No Current occupational status: retired Cognitive needs: No Hearing needs: No Vision needs: Yes Meds Allergies Allergy/AdvReac Type Severity Reaction Status Date / Time No Known Allergies Allergy Verified 03/09/25 07:58 Home Medications ?Medication ?Instructions ?Recorded ?Confirmed ?Last Taken ?Type rosuvastatin 5 mg tablet 5 mg PO DAILY 04/07/25 04/07/25 Unknown History Exam Height,Weight and Vital Signs: Height 5 ft 8 in Weight 106.141 kg Assessment and Plan Assessment Anesthesia Assessment: Chart Reviewed Documented by User: Priscilla Muhammad DO 04/09/25 07:05 PMFSH Past Medical History Medical History Mild acid reflux Colon cancer screening Essential hypertension Obesity (BMI 30-39.9) Alcohol use disorder Elevated transaminase level Elevated PSA Dyslipidemia History of bucket handle tear of lateral meniscus Medial epicondylitis History of osteoarthritis Family History Family History Mother Peripheral arterial disease Father Coronary artery disease Hyperlipidemia Bladder cancer COPD (chronic obstructive pulmonary disease) Peripheral arterial disease Sister Arthritis Family history of problems with anesthesia: No Surgical History Surgical History H/O cervical discectomy History of total knee arthroplasty History of arthroscopy of shoulder History of elbow surgery History of carpal tunnel release History of Problems with Anesthesia: No Social History Social History Housing: House Alcohol intake: current Alcohol intake frequency: 0-2 drinks per day Alcohol type: beer Comment: 15 cancer bupropion Patient Tobacco Use Status: Former Tobacco user Tobacco use type: Cigarette Cigarette Packs Per Day: 1 e-Cigarette/Vaping Use: Never Used Use of substances other than those prescribed or required for medical reasons: No Advance Directives: No Advance Directives Information Provided: Yes service: No Current occupational status: retired Cognitive needs: No Hearing needs: No Vision needs: Yes Meds Allergies Allergy/AdvReac Type Severity Reaction Status Date / Time No Known Allergies Allergy Verified 03/09/25 07:58 Home Medications ?Medication ?Instructions ?Recorded ?Confirmed ?Last Taken ?Type rosuvastatin 5 mg tablet 5 mg PO DAILY 04/07/25 04/07/25 Unknown History Exam Exam Date and Time: 04/09/25 0704 Height,Weight and Vital Signs: Height 5 ft 8 in Weight 106.141 kg Vital Signs Temperature 97.7 F 04/09/25 06:57 Pulse Rate 65 04/09/25 06:57 Respiratory Rate 16 04/09/25 06:57 Blood Pressure 158/81 H 04/09/25 06:57 Pulse Oximetry 96 04/09/25 06:57 Oxygen Delivery Method Room Air 04/09/25 06:57 Temperature 97.7 F 04/09/25 06:57 Pulse Rate 65 04/09/25 06:57 Respiratory Rate 16 04/09/25 06:57 Blood Pressure 158/81 H 04/09/25 06:57 Pulse Oximetry 96 04/09/25 06:57 Oxygen Delivery Method Room Air 04/09/25 06:57 Airway Mallampati Class: II TM Dist: >3cm Neck ROM: Full Loose/Missing/Broken Teeth: Yes (broken #8) Heart: S1S2 Lungs: CTAB Assessment and Plan Assessment Anesthesia Assessment: Anesthesia Plan Discussed and Chart Reviewed Final Anesthetic Review Family History of Problems with Anesthesia: No History of Problems with Anesthesia: No NPO: Yes ASA Class: II Final Preanesthetic Review: No Changes in Pt Med Stat, Meds/Allgs Chart Reviewed, Consent Obtained/Reviewed and Anes Risks/Benef Reviewed Patient Risk: Low Procedure Risk: Low Anesthetic Plan Anesthetic Plan: MAC: and Agree w/ Assess. and Plan Disposition: Standard PACU
--- NOTE | 2025-04-09 07:39 | MHC.SHP ---
Pre-Procedural Eval Section A - 24 Hr Update-Section A only Date of Service: 04/09/25 Section B - Complete if H&P > 30 days Chief Complaint: screening Relevant Family History (Specify if Yes): No Relevant Social History: Alcohol Use Present Medications: see Short Stay Collaborative assessment Medical History: Significant History (high chol, OA) History of Previous Operations: Relevant previous surgery/procedure and date(s) (colonoscopy) Allergies: Allergies Allergy/AdvReac Type Severity Reaction Status Date / Time No Known Allergies Allergy Verified 03/09/25 07:58 Review of Systems Sugical H&P ROS: Negative: Constitution, Cardiovascular, Respiratory, Neurological, Psychiatric, Hem-Onc, Allergic/Immunologic, Gastrointestinal, Genitourinary, Musculoskeletal, Integumentary, Endocrine and Eyes/Ears/Nose/Throat Exam Surgical H&P Exam: Normal: HEENT, Normal: Heart, Normal: Lungs, Normal: Extremities, Normal: Abdomen, Normal: Skin and Normal: Neurological Plan Diagnosis/Plan: Unchanged I have reviewed the history and physical and performed a pertinent physical examination on my patient. No changes have occurred unless specified. Time Spent With Patient Time: Total time managing care of this patient today ____ minutes.
--- NOTE | 2025-04-09 08:03 | P.OPN-COLO_ITS ---
Colonoscopy Operative Note Operative Note Date of Service: 04/09/25 Narrative: Operative Information Procedure Description: Colonoscopy Indication: screening Anesthesia: MAC COLONOSCOPY Instrument: Olympus variable stiffness pediatric scope 190L Colonoscopy Monitoring: Vital signs and clinical assessment, continuous EKG monitoring, Pulse oximetry, Carbon Dioxide monitoring and blood pressure monitoring were done throughout the procedure. Colon withdrawal time was 11 minutes. Procedure: The patient was placed in the left lateral decubitis position and pre-procedure medications were administered. After a digital rectal examination of the ano-rectum, the video colonoscope was inserted into the rectum and advanced through the colon to the cecum/TI. The colonoscope was slowly withdrawn in a retrograde panoramic fashion and the colon mucosa was carefully examined including a retroflexed view of the rectum. Findings and interventions are described below. Procedure Difficulty: easy Findings: Terminal Ileum-normal Cecum: 3-4 mm sessile polyp removed with cold forceps Ascending Colon: normal Transverse Colon -normal Descending Colon: 10 mm sessile polyp removed with cold snare Sigmoid Colon: normal Rectum: Retroflexion with small internal hemorrhoids seen, grade I Anorectum - normal Intervention: cold forceps and cold snare Colon preparation: Porter Bowel Preparation Scale Right colon; 2 Transverse colon: 2 Left colon; 2 (0 = Unprepared colon segment with mucosa not seen due to solid stool that cannot be cleared. 1 = Portion of mucosa of the colon segment seen, but other areas of the colon segment not well seen due to staining, residual stool and/or opaque liquid. 2 = Minor amount of residual staining, small fragments of stool and/or opaque liquid, but mucosa of colon segment seen well. 3 = Entire mucosa of colon segment seen well with no residual staining, small fragments of stool or opaque liquid) Impression and Post Procedure Diagnosis: colon polyps x 2 internal hemorrhoids Plan: High fiber diet leaflet Avoid straining at stool, epsom salts and sitz bath, anusol supps or cream Repeat Colonoscopy in 5 years or earlier if clinically indicated Above findings were reviewed with the patient and relevant handouts were provided if indicated.
[2025-04-09 08:06] VITALS: BP 109/70; PULSE 67; RESP 16; TEMP 36.2; O2SAT 97
[2025-04-09 08:20] VITALS: BP 125/71; PULSE 67; RESP 16; TEMP 36.2; O2SAT 96
[2025-04-09 08:33] VITALS: BP 118/78; PULSE 70; RESP 16; TEMP 36.2; O2SAT 97
== END 2025-04-09 08:45 | disposition home or self-care (01) ==
PROVIDERS: PCP Internal Medicine; Visit Provider Internal Medicine Gastroenterology
PROC: 0DJD8ZZ Inspection of Lower Intestinal Tract, Via Natural or Artificial Opening Endoscopic (ICD-10-PCS; CPT 45378; principal; 2025-04-09 07:30)
DX: Z12.11 Encounter for screening for malignant neoplasm of colon (principal); D12.0 Benign neoplasm of cecum; D12.4 Benign neoplasm of descending colon; K64.0 First degree hemorrhoids; I10 Essential (primary) hypertension; E78.5 Hyperlipidemia, unspecified; E66.9 Obesity, unspecified; Z68.34 Body mass index [BMI] 34.0-34.9, adult; Z79.02 Long term (current) use of antithrombotics/antiplatelets; Z79.899 Other long term (current) drug therapy; Z87.891 Personal history of nicotine dependence
CPT/HCPCS: 45385; 45380; 88305; J2704

== ENCOUNTER → 2025-04-09 05:54 | Outpatient (BNV) | payer OTHER, SELFPAY | PROVIDERS: PCP Internal Medicine; Visit Provider Internal Medicine Gastroenterology | DX: Z12.11 Encounter for screening for malignant neoplasm of colon (principal); D12.0 Benign neoplasm of cecum; D12.4 Benign neoplasm of descending colon; K64.0 First degree hemorrhoids | CPT/HCPCS: 45380; 45385 ==